=== PATIENT | female | born 1965 | race Caucasian/White ===

== ENCOUNTER → 2020-07-19 10:39 | Outpatient (CLI) | payer MEDICARE, MEDICAID, SELFPAY ==
--- NOTE | 2020-07-19 10:43 | MM_ITS ---
PROCEDURE: MM DIG SCREENING MAMM BI W/CAD Digital Breast Tomosynthesis Included CLINICAL INDICATION: SCREENING There is a history of breast cancer patient's paternal grandmother. COMPARISON: This is a baseline screening exam, patient without complaints TECHNIQUE: Standard CC and MLO images and 3D Tomosynthesis was obtained. R2 CAD reviewed. FINDINGS: Scattered fibroglandular densities are seen throughout both breasts on a background of primarily fatty breast parenchyma. The findings are fairly symmetrical bilaterally. There is no suspicious lesion and no suspicious microcalcifications. IMPRESSION: Fibrofatty parenchyma with no suspicious lesions seen BI-RAD Category: 1 Negative FOLLOW-UP: 1YR 1 Year Follow-up (A letter has been sent to the patient regarding results of the study.) Dictated by: Dr. Tom Poole MD 07/24/2020 08:26 Dr. Tom Poole MD in [place] 07/24/2020 08:26
== END ==
PROVIDERS: PCP Family Medicine Adult Medicine; Visit Provider Family Medicine Adult Medicine
DX: Z12.31 Encounter for screening mammogram for malignant neoplasm of breast (principal); Z80.3 Family history of malignant neoplasm of breast; I10 Essential (primary) hypertension; F33.1 Major depressive disorder, recurrent, moderate; F41.1 Generalized anxiety disorder; J30.2 Other seasonal allergic rhinitis
CPT/HCPCS: 77063; 77067

== ENCOUNTER 2020-09-03 15:37 | Emergency (ER) | payer MEDICARE, MEDICAID, SELFPAY ==
--- NOTE | 2020-09-03 16:03 | HMH.EDUTC ---
[facility] Disposition Clinical Impression: Exposure to COVID-19 virus Disposition: Home, Self-Care Condition on Discharge: Good Instructions: Preventing the Spread of Coronavirus Discharge Instructions Additional Instructions: Drink plenty of fluids. Take tylenol for pain or fever. Return if you begin to have difficulty breathing. Follow up with your regular doctor. GO TO THE ER FOR ANY WORSENING SYMPTOMS Referrals: Kayla Maynard APRN [Primary Care Provider] - Time of Disposition: 16:08 Medical Decision Making - Medical Records Medical records reviewed: No: I reviewed the patient's medical records. - Michael Inquiry Pt receiving controlled substance: No Vital Signs: 09/03/20 16:06 09/03/20 16:11 Temperature 98.1 F 98.1 F Temperature Source Tympanic Oral Pulse Rate 64 Pulse Rate [Right Brachial] 64 Respiratory Rate 14 14 Blood Pressure 165/80 H Blood Pressure [Right Arm] 165/80 H Blood Pressure Mean [Right Arm] 108 Blood Pressure Source Automatic Cuff Blood Pressure Source [Right Arm] Automatic Cuff Blood Pressure Position Sitting Blood Pressure Position [Right Arm] Sitting 02 Sat by Pulse Oximetry 97 Oxygen Delivery Method Room Air Room Air Orders (Tests/Meds): ORDERS Category Date Time Status Covid-19 Nasal PCR ([facility]) Routine Lab 09/03/20 15:50 Received [facility] HPI - General Stated complaint: covid test Time Seen by Provider: 09/03/20 16:03 - History of Present Illness Provider Complaint: Her son may have covid and she has been around him a lot over the past few days. She denies any symptoms at this time. - Related Data Home Medications Medication Instructions Recorded Confirmed Buprenorphine HCl/Naloxone HCl 2 film TD DAILY 04/17/19 04/17/19 [Buprenorp-Nalox 8-2 mg Sl Film] escitalopram oxalate 20 mg tablet 20 mg PO DAILY 06/20/20 fluticasone propionate 50 1 spray INTRANASAL DAILY 06/20/20 mcg/actuation nasal spray,suspension folic acid 1 mg tablet 1 mg PO DAILY 06/20/20 lisinopril 10 mg tablet 10 mg PO DAILY 06/20/20 metoprolol succinate 50 mg 50 mg PO DAILY 06/20/20 tablet,extended release 24 hr Allergies Allergy/AdvReac Type Severity Reaction Status Date / Time PCN (PENICILLIN) Allergy Unknown I-HIVES Uncoded 06/20/20 11:11 [facility] History - Hepatitis A Screen Attestation statement:: This patient has been screened for Hepatitis A risk factors. I have reviewed the patient's past medical history: Yes Medical History: Reports:: Cancer Denies:: Diabetes Mellitus Type 1, Diabetes Mellitus Type 2, MRSA Other Surgeries: Yes: Appendectomy Amputation: No Comment: rt foot - Social History Smoking Status: Current every day smoker Tobacco Type: cigarettes # Packs/Day (cigarettes): 1 Alcohol Intake: never Substance Use Type: marijuana, opiates, prescription drug Occupational Status: other Family Hx:: No significant family history ROS Obtained: Yes All systems reviewed & no additional complaints - Constitutional Constitutional: Reports system reviewed and no additional complaints, except as docu - Eyes Eyes: Reports system reviewed and no additional complaints, except as docu - ENT Ears, Nose, Mouth, and Throat: Reports system reviewed and no additional complaints, except as docu - Cardiovascular Cardiovascular: Reports system reviewed and no additional complaints, except as docu - Respiratory Respiratory: Reports system reviewed and no additional complaints, except as docu - Gastrointestinal Gastrointestingal: Reports: system reviewed and no additional complaints, except as docu Physical Exam - General General appearance: alert, in no apparent distress - Head Head exam: atraumatic, normocephalic, normal inspection - Eye Eye exam: Present: normal appearance, PERRL, EOMI - ENT ENT exam: Present: normal exam, normal oropharynx, mucous membranes moist, TM's normal bilaterally, normal external ear exam - N
[2020-09-03 16:06] VITALS: BP 165/80; PULSE 64; RESP 14; TEMP 36.7; O2SAT 97; BMI 32.8
[2020-09-03 16:11] VITALS: BP 165/80; PULSE 64; RESP 14; TEMP 36.7; O2SAT 97
== END 2020-09-03 16:12 | disposition home or self-care (01) ==
PROVIDERS: Emergency Provider Nurse Practitioner Family; PCP Nurse Practitioner Family
DX: Z20.822 Contact with and (suspected) exposure to COVID-19 (principal); F17.210 Nicotine dependence, cigarettes, uncomplicated; Z88.0 Allergy status to penicillin
CPT/HCPCS: 99202; G0463; U0003

== ENCOUNTER 2021-04-21 11:46 | Emergency (ER) | payer MEDICARE, MEDICAID, SELFPAY ==
[2021-04-21 12:50] VITALS: BP 160/72; PULSE 63; RESP 19; TEMP 36.8; O2SAT 96; BMI 31.3
--- NOTE | 2021-04-21 13:01 | XR_ITS ---
PROCEDURE: XR HAND LT MIN 3V CLINICAL INDICATION: FALL Pain COMPARISON: CR XR HAND RT MIN 3V from 04/21/2021 FINDINGS: No fracture or dislocation. No lytic or blastic change. There is normal mineralization. The joint spaces are well-preserved. No significant degenerative/arthritic changes. No erosive changes evident. Other findings:None. IMPRESSION: No acute findings. Dictated by: Jd Santos MD 04/21/2021 13:41 Jd Santos MD in [place] 04/21/2021 13:41
--- NOTE | 2021-04-21 13:01 | XR_ITS ---
PROCEDURE: XR HAND RT MIN 3V CLINICAL INDICATION: FALL COMPARISON: No exams were available for comparison FINDINGS: No fracture or dislocation. No lytic or blastic change. There is normal mineralization. The joint spaces are well-preserved. No significant degenerative/arthritic changes. No erosive changes evident. Other findings:None. IMPRESSION: No acute findings. Dictated by: Jd Santos MD 04/21/2021 13:47 Jd Santos MD in [place] 04/21/2021 13:47
--- NOTE | 2021-04-21 13:18 | HMH.EDUTC ---
[facility] [place] Clinical Impression: Hand pain Qualifiers: Laterality: bilateral Qualified Code(s): M79.641 - Pain in right hand; M79.642 - Pain in left hand Disposition: Home, Self-Care Condition on Discharge: Good Instructions: How to Apply an Kurt Wrap, How To Perform RICE (Rest, Ice, Compress, Elevate) Additional Instructions: *RICE, Rest the extremity, Ice 15-20 minutes 3-4 times daily, Compress- wear the kurt wrap as discussed as much as possible to help reduce swelling and pain, Elevate the extremity when at rest *Kurt wrap is for support and help control swelling, use it except in the shower. Be sure that is not to tight but not to loose either *Elevate when resting *Ibuprofen every 6-8 hours as needed for pain an inflammation. If need something more can take Tylenol in between doses of Ibuprofen to help Immediately follow up with your family doctor for new or worsening of symptoms, or no noticeable improvement over the next 3-5 days Follow up with your Family Doctor if no improvement or any worsening of symptoms Referrals: Provider,Referral, [Primary Care Provider] - As needed Time of Disposition: 13:51 Medical Decision Making - Michael Inquiry Pt receiving controlled substance: No Michael was queried for this patient: No Vital Signs: 04/21/21 12:50 Temperature 98.2 F Temperature Source Oral Pulse Rate [Right Brachial] 63 Respiratory Rate 19 Blood Pressure [Right Arm] 160/72 H Blood Pressure Mean [Right Arm] 101 Blood Pressure Source [Right Arm] Automatic Cuff Blood Pressure Position [Right Arm] Sitting 02 Sat by Pulse Oximetry 96 Oxygen Delivery Method Room Air Orders (Tests/Meds): ORDERS Category Date Time Status XR hand LT min 3V Stat Exams 04/21/21 13:01 Taken XR hand RT min 3V Stat Exams 04/21/21 13:01 Taken - Radiology Data #1 Image(s): Hand (left) Image Reviewed: Yes I have reviewed radiologist's interpretation Preliminary Findings: No Fracture Seen #2 Image(s): Hand (right) Image Reviewed: Yes I reviewed the patient's radiology image Preliminary Findings: No Fracture Seen [facility] HPI - General Stated complaint: AO [id number] both hands hurt,fell @ home Time Seen by Provider: 04/21/21 13:18 Mode of Arrival: Ambulatory Source of Information: Patient Limitations: No Limitations Description of Symptoms (Recalled from Triage Doc. by RN): PATIENT REPORTS SHE FELL ASLEEP ON THE PORCH LAST NIGHT AND FELL, INJURING HER HANDS HEENT Symptoms (Recalled from RN notes): No Resp Symptoms (Recalled from RN notes): No Skin Symptoms (Recalled from RN notes): No MS Symptoms (Recalled from RN notes): Yes Functional Status (Recalled from RN notes): WNL - History of Present Illness Provider Complaint: Patient states that she has been moving into a new appartment and she sit on the porch last night and dosed off when she fell over and she tried to catch herself and she stuck her hands out States that ever since she has been having pain in the back of both of her hands and hurts hwen she moves them so she came in to get checked - Related Data Home Medications Medication Instructions Recorded Confirmed Buprenorphine HCl/Naloxone HCl 0.5 film TD DAILY 04/17/19 04/21/21 [Buprenorp-Nalox 8-2 mg Sl Film] escitalopram oxalate 20 mg tablet 20 mg PO DAILY 06/20/20 04/21/21 lisinopril 10 mg tablet 10 mg PO DAILY 06/20/20 04/21/21 Allergies Allergy/AdvReac Type Severity Reaction Status Date / Time Penicillins Allergy Verified 04/21/21 13:06 - Worker's Comp Is this a Worker's Comp case?: No [facility] History - Hepatitis A Screen Drug use history?: No High risk sexual behaviors?: No History of sexually transmitted infection?: No Currently employed?: No Childcare worker?: No Do you have indoor plumbing?: Yes Do you have electricity?: Yes Attestation statement:: This patient has been screened for Hepatitis A risk factors. I have reviewed the patient's past medical histor
[2021-04-21 13:58] VITALS: BP 160/72; PULSE 63; RESP 19; TEMP 36.8; O2SAT 96
== END 2021-04-21 14:01 | disposition home or self-care (01) ==
PROVIDERS: Emergency Provider Nurse Practitioner
DX: M79.641 Pain in right hand (principal); M79.642 Pain in left hand; F17.210 Nicotine dependence, cigarettes, uncomplicated; W18.39XA Other fall on same level, initial encounter; Y92.038 Other place in apartment as the place of occurrence of the external cause
CPT/HCPCS: G0463; 73130; 99202

== ENCOUNTER → 2021-08-05 12:44 | Outpatient (CLI) | payer MEDICARE, MEDICAID, SELFPAY ==
--- NOTE | 2021-08-05 12:47 | MM_ITS ---
PROCEDURE INFORMATION: Exam: MG Bilateral Screening 3D Mammography Exam date and time: 08/05/2021 12:57 PM Age: 56 years old Clinical indication: Encounter for screening mammogram for malignant neoplasm of breast . Family history of breast carcinoma. TECHNIQUE: Imaging protocol: Bilateral Screening tomosynthesis and 2D mammography including computer-aided detection (CAD) when performed. COMPARISON: MG MM DIG SCREENING MAMM BI W/CAD 07/19/2020 11:03 AM FINDINGS: MAMMOGRAPHY: Breast composition: There are scattered areas of fibroglandular density. Mass: No suspicious masses. Architectural distortion: No suspicious distortion. Calcifications: No suspicious calcifications. Asymmetric density: None. Skin thickening: None. Axillary adenopathy: None. IMPRESSION: No mammographic evidence of malignancy. Annual screening is recommended unless otherwise clinically indicated. ASSESSMENT: BI-RADS Category 1: Negative
== END ==
PROVIDERS: PCP Nurse Practitioner Family; Visit Provider Nurse Practitioner Family
DX: Z12.31 Encounter for screening mammogram for malignant neoplasm of breast (principal)
CPT/HCPCS: 77063; 77067

== ENCOUNTER → 2022-08-14 13:38 | Outpatient (CLI) | payer MEDICARE, MEDICAID, SELFPAY ==
--- NOTE | 2022-08-14 13:45 | MM_ITS ---
PROCEDURE INFORMATION: Exam: MG Bilateral Screening 3D Mammography Exam date and time: 08/14/2022 1:43 PM Age: 57 years old Clinical indication: Screening examination. Her paternal grandmother had breast cancer. TECHNIQUE: Imaging protocol: Bilateral Screening tomosynthesis and 2D mammography including computer-aided detection (CAD) when performed. COMPARISON: 1. MG MM DIG SCREENING MAMM BI W/CAD 08/05/2021 12:57 PM 2. MG MM DIG SCREENING MAMM BI W/CAD 07/19/2020 11:03 AM FINDINGS: MAMMOGRAPHY: Breast composition: There are scattered areas of fibroglandular density. Mass: None. Architectural distortion: None. Calcifications: No suspicious calcifications. Asymmetric density: None. Skin thickening: None. Axillary adenopathy: None. IMPRESSION: No mammographic evidence of malignancy. Annual screening is recommended unless otherwise clinically indicated. ASSESSMENT: BI-RADS Category 1: Negative
== END ==
PROVIDERS: PCP Nurse Practitioner Family; Visit Provider Nurse Practitioner Family
DX: Z12.31 Encounter for screening mammogram for malignant neoplasm of breast (principal)
CPT/HCPCS: 77063; 77067

== ENCOUNTER 2022-12-04 13:35 | Emergency (ER) | payer MEDICARE, MEDICAID, SELFPAY ==
[2022-12-04 13:50] VITALS: BP 146/84; PULSE 76; RESP 19; TEMP 36.9; O2SAT 99; BMI 35.6
--- NOTE | 2022-12-04 13:51 | XR_ITS ---
FINAL REPORT CLINICAL HISTORY: stubbed frt fifth toe,pain and blood blister medial 5th toe FINDINGS: AP, oblique and lateral views of the right foot were obtained. There is no prior exam for comparison. There are postoperative changes to the proximal phalanx of the great toe. There is a fracture of the base of the middle phalanx of the fifth toe which extends to the PIP joint. No other acute fracture. There is multijoint degenerative disease. There is soft tissue edema of the fifth digit. IMPRESSION: Fracture of the middle phalanx of the fifth toe. Degenerative and postoperative changes. Reviewed, Interpreted and Dictated by Hannah Munroe MD Transcribed by Idris Apodaca Authenticated and [facility]
--- NOTE | 2022-12-04 13:51 | XR_ITS ---
FINAL REPORT CLINICAL HISTORY: JAMMED MIDDLE FINGER, pain and bruising at the base of the third finger FINDINGS: AP, lateral and oblique views of the right hand were obtained. A comparison from 04/21/2021 was used for comparison. There is no acute fracture or dislocation. The joint spaces are preserved. The soft tissues are normal. IMPRESSION: No acute osseous abnormality of the right hand. Reviewed, Interpreted and Dictated by Hannah Munroe MD Transcribed by Idris Apodaca Authenticated and [facility]
--- NOTE | 2022-12-04 14:07 | EXP.UTC ---
Discharge Plan Disposition Patient Disposition: Home, Self-Care Condition: Good Prescriptions Prescriptions: No Action escitalopram oxalate [Lexapro] 20 mg tablet 20 mg PO DAILY lisinopril 10 mg tablet 10 mg PO DAILY buprenorphine-naloxone 1 EACH film 0.5 film TD DAILY Referrals Follow up/Referrals: Moira Platt APRN [Primary Care Provider] - See instructions Juan Hamlin DO [Staff Physician] - See instructions (Call office for appointment) Activity Restrictions/Add. Instructions Additional Instructions/Restrictions: *weight bearing as tolerated *RICE, Rest the extremity, Ice 15-20 minutes 3-4 times daily, Compress- wear the kurt wrap as discussed as much as possible to help reduce swelling and pain, Elevate the extremity when at rest *Kurt wrap/Post OP shoe is for support and help control swelling, use it except in the shower. Be sure that is not to tight but not to loose either *Elevate when resting? *Ibuprofen 600-800mg every 6-8 hours as needed for pain an inflammation. If need something more can take Tylenol in between doses of Ibuprofen to help Immediately follow up with your family doctor for new or worsening of symptoms, or no noticeable improvement over the next 3-5 days Call Orthopedic office for appoitment Clinical Impressions Clinical Impression: Fracture of toe Qualifiers: Encounter type: initial encounter Toe: lesser toe Fracture type: closed Phalanx: middle Fracture alignment: nondisplaced Laterality: right Qualified Code(s): S92.524A - Nondisplaced fracture of middle phalanx of right lesser toe(s), initial encounter for closed fracture Instructions Patient Instructions: DI for Toe Fracture, Toe Fracture Discharge ED Provider: Ailyn Baker [facility] [place] General Stated complaint: AO@home 12/02 RT pinky toe pain, RT hand pain Mode of Arrival: Ambulatory Source of Information: Patient Limitations: No Limitations Time Seen by Provider: 12/04/22 14:00 Description of Symptoms (Recalled from Triage Doc. by RN): PATIENT STATES SHE KICKED A DOOR FRAME 2 DAYS AGO AND INJURED HER RIGHT PINKY TOE. ALSO C/O PAIN TO RIGHT MIDDLE FINGER HEENT Symptoms (Recalled from RN notes): No Resp Symptoms (Recalled from RN notes): No Skin Symptoms (Recalled from RN notes): No MS Symptoms (Recalled from RN notes): Yes Functional Status (Recalled from RN notes): WNL History of Present Illness Provider Complaint: Patient states that about 2 days ago she was walking through her house when she accidently kicked the door frame with her right foot and hurt her right little toe States that since then she has been having swelling and bruising and this morning she noticed she had a blood blister on the inside of her toe so she came in to get it looked at States that also she has been having pain in her right middle finger/top of hand after she hurt it a little while back wanting to get it checked also Related Data Home Medications Medication Instructions Recorded Confirmed buprenorphine 8 mg-naloxone 2 mg 0.5 film TD DAILY . 04/17/19 04/21/21 sublingual film escitalopram oxalate 20 mg tablet 20 mg PO DAILY Depression 06/20/20 04/21/21 (Lexapro) lisinopril 10 mg tablet 10 mg PO DAILY Hypertension 06/20/20 04/21/21 Allergies Allergy/AdvReac Type Severity Reaction Status Date / Time Penicillins Allergy Verified 04/21/21 13:06 Worker's Comp Is this a Worker's Comp case?: No [facility] Disclaimer: The information contained in this section may have been updated after the patient was seen, as this information can be updated by other users. Social History Smoking Status: Current every day smoker tobacco type: cigarettes packs per day: 1 alcohol intake: never substance use type: marijuana, opiates and prescription drug current occupational status: other Travel in the last 8 weeks: None ROS Obtained: Yes All systems reviewed & no additional complaints except as documente
[2022-12-04 16:17] VITALS: BP 146/84; PULSE 76; RESP 19; TEMP 36.9; O2SAT 99
== END 2022-12-04 16:19 | disposition home or self-care (01) ==
PROVIDERS: Emergency Provider Nurse Practitioner; PCP Nurse Practitioner Family
DX: S92.521A Displaced fracture of middle phalanx of right lesser toe(s), initial encounter for closed fracture (principal); M79.641 Pain in right hand; W22.8XXA Striking against or struck by other objects, initial encounter
CPT/HCPCS: 73130; 73630; 99212; 99213; 99214; G0463

== ENCOUNTER 2022-12-11 17:07 | Emergency (ER) | payer MEDICARE, MEDICAID, SELFPAY ==
[2022-12-11 17:09] VITALS: BP 150/84; PULSE 60; RESP 18; TEMP 36.6; O2SAT 94; BMI 29.7
--- NOTE | 2022-12-11 17:29 | EXP.UTC ---
Discharge Plan Disposition Patient Disposition: Home, Self-Care Condition: Good Prescriptions Prescriptions: No Action escitalopram oxalate [Lexapro] 20 mg tablet 20 mg PO DAILY lisinopril 10 mg tablet 10 mg PO DAILY buprenorphine-naloxone 1 EACH film 0.5 film TD DAILY Referrals Follow up/Referrals: Moira Platt APRN [Primary Care Provider] - See instructions Activity Restrictions/Add. Instructions Additional Instructions/Restrictions: Follow up with Ms Platt if not improving Warm epsom salt soaks Clinical Impressions Clinical Impression: Seroma, Fracture of toe Instructions Patient Instructions: DI for Hematoma (Bruise) [place]charge ED Provider[place] Pooja [place] [facility] [place] General Stated complaint: RT pinky toe inj, blister on toe Mode of Arrival: Ambulatory Source of Information: Patient Limitations: No Limitations Time Seen by Provider: 12/11/22 17:33 Description of Symptoms (Recalled from Triage Doc. by RN): Patient states she was here this past weekend and told she broke her toe in two pieces. Now she states she has a blister on that toe. HEENT Symptoms (Recalled from RN notes): No Resp Symptoms (Recalled from RN notes): No Skin Symptoms (Recalled from RN notes): Yes MS Symptoms (Recalled from RN notes): No Functional Status (Recalled from RN notes): wnl History of Present Illness Provider Complaint: Patient fractured her right 5th toe last weekend. She kicked a box fan and her 5th toe was bent to the side. Tried wearing post op shoe and it was uncomfortable. Now has a blister on the inner, upper toe. Onset (ago): week(s) Location: right and lower extremity Relieving factors: none Exacerbating factors: none Treatments prior to arrival: none Related Data Home Medications Medication Instructions Recorded Confirmed buprenorphine 8 mg-naloxone 2 mg 0.5 film TD DAILY . 04/17/19 04/21/21 sublingual film escitalopram oxalate 20 mg tablet 20 mg PO DAILY Depression 06/20/20 04/21/21 (Lexapro) lisinopril 10 mg tablet 10 mg PO DAILY Hypertension 06/20/20 04/21/21 Allergies Allergy/AdvReac Type Severity Reaction Status Date / Time Penicillins Allergy Verified 04/21/21 13:06 Worker's Comp Is this a Worker's Comp case?: No [facility] Disclaimer: The information contained in this section may have been updated after the patient was seen, as this information can be updated by other users. Social History Smoking Status: Current every day smoker tobacco type: cigarettes packs per day: 1 alcohol intake: never substance use type: marijuana, opiates and prescription drug current occupational status: other Travel in the last 8 weeks: None ROS Obtained: Yes All systems reviewed & no additional complaints except as documented and Yes Systems reviewed as appropriate & no additional complaints except as documented ENT Ears, Nose, Mouth, and Throat: Reports system reviewed and no additional complaints, except as documented and Reports as per HPI Cardiovascular Cardiovascular: Reports system reviewed and no additional complaints, except as documented and Reports as per HPI Respiratory Respiratory: Reports system reviewed and no additional complaints, except as documented and Reports as per HPI Gastrointestinal Gastrointestingal: Reports system reviewed and no additional complaints, except as documented and as per HPI Genitourinary Female Genitourinary: Reports system reviewed and no additional complaints, except as documented and Reports as per HPI Musculoskeletal Musculoskeletal: Reports system reviewed and no additional complaints, except as documented and Reports as per HPI Comments: right 5th toe pain Integumentary/Breasts Skin/Breast: Reports system reviewed and no additional complaints, except as documented and Reports as per HPI Physical Exam General General appearance: alert and in no apparent distress Respiratory Respiratory exam: Present crescencio
[2022-12-11 18:40] VITALS: BP 150/84; PULSE 60; RESP 18; TEMP 36.6; O2SAT 94
== END 2022-12-11 18:41 | disposition home or self-care (01) ==
PROVIDERS: Emergency Provider Physician Assistant; PCP Nurse Practitioner Family
DX: S92.911A Unspecified fracture of right toe(s), initial encounter for closed fracture (principal); F17.210 Nicotine dependence, cigarettes, uncomplicated; W22.8XXA Striking against or struck by other objects, initial encounter
CPT/HCPCS: 99212; 99213; G0463

== ENCOUNTER → 2023-03-08 16:09 | Outpatient (CLI) | payer MEDICARE, MEDICAID, SELFPAY ==
--- NOTE | 2023-03-08 16:15 | XR_ITS ---
FINAL REPORT CLINICAL HISTORY: SWELLING POSTERIOR LEFT ELBOW FINDINGS: 3 views of the elbow were obtained. There is no acute fracture or dislocation. The joint spaces are intact. There are mild degenerative changes. Soft tissue swelling is seen overlying the olecranon which may represent olecranon bursitis. IMPRESSION: No acute fracture Reviewed, Interpreted and Dictated by Samir Mcfarland III, MD Transcribed by Molly Kumar Authenticated and [facility]
== END ==
PROVIDERS: PCP Nurse Practitioner Family; Visit Provider Nurse Practitioner Family
DX: M25.522 Pain in left elbow (principal)
CPT/HCPCS: 73080

== ENCOUNTER 2023-08-25 14:32 | Emergency (ER) | payer MEDICARE, MEDICAID, SELFPAY ==
[2023-08-25 15:00] VITALS: BP 119/74; PULSE 81; RESP 18; TEMP 37; O2SAT 96; BMI 29.5
--- NOTE | 2023-08-25 15:06 | ED_ITS ---
Discharge Plan Disposition Patient Disposition: Home, Self-Care Condition: Good Prescriptions Prescriptions: New cyclobenzaprine 10 mg Tablet 10 mg PO BID PRN (Reason: Muscle Spasm) Qty: 20 0RF methylprednisolone 4 mg Tablets,Dose Pack 4 mg PO DIRECTED 6 Days Qty: 21 0RF Rx Instructions: Take 1 pack as directed for 6 days No Action escitalopram oxalate [Lexapro] 20 mg tablet 20 mg PO DAILY lisinopril 10 mg tablet 10 mg PO DAILY albuterol sulfate 90 mcg/actuation HFA aerosol inhaler See Rx Instructions .ROUTE .COMPLEX Patient Comments: INHALE 1 TO 2 PUFFS BY MOUTH EVERY 4 HOURS NEEDED FOR WHEEZING OR COUGHING Rx Instructions: INHALE 1 TO 2 PUFFS BY MOUTH EVERY 4 HOURS NEEDED FOR WHEEZING OR COUGHING bupropion HCl 150 mg tablet extended release 24 hr 150 mg PO BID buprenorphine-naloxone 8-2 mg film See Rx Instructions .ROUTE .COMPLEX Patient Comments: DISSOLVE 1 AND 3/4 FILM UNDER THE TONGUE ONCE DAILY DIRECTED Rx Instructions: DISSOLVE 1 AND 3/4 FILM UNDER THE TONGUE ONCE DAILY DIRECTED Referrals Follow up/Referrals: Moira Platt APRN [Primary Care Provider] - See instructions Activity Restrictions/Add. Instructions Additional Instructions/Restrictions: Go home and rest. It would be best if you rested tomorrow too. No heavy lifting. No twisting. Take the oral medications as directed. The muscle relaxer (cyclobenzaprine--Flexeril) will make you drowsy, so don't drive or operate heavy machinery after taking it. Don't start the oral steroids (medrol dose pack) until tomorrow, since you had the shots in here today. Follow up with your regular doctor. GO TO THE ER FOR ANY WORSENING SYMPTOMS OR CONCERN, ESPECIALLY BOWEL OR BLADDER ISSUES, SADDLE AREA NUMBNESS, FEVER, ETC Clinical Impressions Clinical Impression: Acquired torticollis Instructions Patient Instructions: Cyclobenzaprine, Methylprednisolone, Ketorolac Injection, Dexamethasone Injection Discharge ED Provider: Lizandro Thakur [facility] General Stated complaint: neck pain on lt side of neck Time Seen by Provider: 08/25/23 15:06 History of Present Illness Provider Complaint: She states that she has had muscle tightness, muscles spasms and pain of the left side of her neck for the past 3 days. She denies any injury. She states that she woke up with the neck pain. She has took ibuprofen for the pain and it has help for a short time. She denies any chest pain. Related Data Home Medications Medication Instructions Recorded Confirmed escitalopram oxalate 20 mg tablet 20 mg PO DAILY Depression 06/20/20 08/25/23 (Lexapro) lisinopril 10 mg tablet 10 mg PO DAILY Hypertension 06/20/20 08/25/23 albuterol sulfate 90 mcg/actuation See Rx Instructions .Route .COMPLEX 08/25/23 08/25/23 aerosol inhaler buprenorphine 8 mg-naloxone 2 mg See Rx Instructions .Route .COMPLEX 08/25/23 08/25/23 sublingual film bupropion HCl 150 mg 24 hr tablet, 150 mg PO BID 08/25/23 08/25/23 extended release Previous Rx's Medication Instructions Recorded cyclobenzaprine 10 mg tablet 10 mg PO BID PRN Muscle Spasm #20 08/25/23 tabs methylprednisolone 4 mg tablets in 4 mg PO DIRECTED 6 days #21 tabs 08/25/23 a dose pack Allergies Allergy/AdvReac Type Severity Reaction Status Date / Time Penicillins Allergy Verified 08/25/23 15:22 [facility] Disclaimer: The information contained in this section may have been updated after the patient was seen, as this information can be updated by other users. Social History Smoking Status: Current every day smoker tobacco type: cigarettes packs per day: 1 alcohol intake: never substance use type: marijuana, opiates and prescription drug current occupational status: other Travel in the last 8 weeks: None ROS Obtained: Yes All systems reviewed & no additional complaints except as documented Constitutional Constitutional: Denies chills and Denies fever(s) Eyes Eyes: Denies eye discharge ENT Ears, Nose, Mouth, and Throat: Denies dizziness, Denies otalgia, Reports neck pain and Denies sore throat Cardiovascular Cardiovascular: Denies chest pain Respiratory Respiratory: Denies shortness of breath, Denies chest congestion, Denies cough, Denies stridor and Denies wheezing Gastrointestinal Gastrointestingal: Denies nausea or vomiting Musculoskeletal Musculoskeletal: Reports as per HPI, Denies back pain and Reports neck pain Integumentary/Breasts Skin/Breast: Denies rash Neurologic Neurologic: Denies dizziness, Denies paresthesias and Denies radicular pain Allergic/Immunologic Allergic/Immunologic: Denies wheezing Physical Exam General General appearance: alert and in no apparent distress Head Head exam: atraumatic, normocephalic and normal inspection Eye Eye exam: Present normal appearance, PERRL and EOMI ENT ENT exam: Present normal exam, normal oropharynx, mucous membranes moist, TM's normal bilaterally and normal external ear exam Neck Neck exam: Present normal inspection, full ROM and trachea midline; Absent meningismus or lymphadenopathy Chest Chest inspection: Present normal inspection and symmetric chest wall rise; Absent tenderness Respiratory Respiratory exam: Present normal lung sounds bilaterally; Absent respiratory distress Cardiovascular Cardiovascular exam: Present regular rate and normal rhythm; Absent JVD Abdominal Exam Abdominal exam: Present soft and normal bowel sounds; Absent distention, tenderness or guarding Extremities Exam Extremities exam: Present normal inspection, full ROM and normal capillary refill; Absent calf tenderness Back Exam Back exam: Present normal inspection; Absent tenderness Neurological Exam Neurological exam: Present alert, oriented X3, CN II-XII intact, normal gait and reflexes normal; Absent motor sensory deficit Expanded Neurological Exam Speech: Present fluid speech Cranial nerves: Normal: EOM function (II, III, IV, ), facial sensation (V), facial palsy (VII), gag reflex (IX), spinal accessory function (XI) and tongue deviation (XII) Cerebellar function: normal gait Motor strength - LUE: 5/5 Motor strength - RUE: 5/5 Motor strength - LLE: 5/5 Motor strength - RLE: 5/5 Upper motor neuron exam: Normal: pratik neglect and sensory extinction Sensory exam upper extremity: Normal: light touch and 2 point discrimination Sensory exam lower extremity: Normal: light touch and 2 point discrimination DTR: 2+: biceps (L), biceps (R), patellar (L), patellar (R), Achilles tendon (L) and Achilles tendon (R) Psychiatric Psychiatric exam: Present normal affect and normal mood Skin Skin exam: Present warm, dry, intact and normal color Lymphatic Lymphatic Findings: no adenopathy Medical Decision Making Medical Records Medical records reviewed: No I reviewed the patient's medical records. Michael Inquiry Pt receiving controlled substance: No
[2023-08-25] MEDS: DEXAMETHASONE 4MG/ML 1ML VIAL 8 MG IM (15:28)
[2023-08-25] MEDS: KETOROLAC 60MG/2ML VIAL 60 MG IM (15:28)
[2023-08-25 15:57] VITALS: BP 119/74; PULSE 81; RESP 18; TEMP 37; O2SAT 96
== END 2023-08-25 15:57 | disposition home or self-care (01) ==
PROVIDERS: Emergency Provider Nurse Practitioner Family; PCP Nurse Practitioner Family
DX: M43.6 Torticollis (principal); M54.2 Cervicalgia; M62.838 Other muscle spasm; F17.210 Nicotine dependence, cigarettes, uncomplicated
CPT/HCPCS: 96372; 99212; 99214; G0463

== ENCOUNTER 2023-10-24 14:32 | Emergency (ER) | payer MEDICARE, MEDICAID, SELFPAY ==
[2023-10-24 14:39] VITALS: BMI 29.9
--- NOTE | 2023-10-24 14:39 | XR_ITS ---
PROCEDURE INFORMATION: Exam: XR Left Ribs with PA Chest Exam date and time: 10/24/2023 2:42 PM Age: 58 years old Clinical indication: Injury or trauma; Fall; Rib area, left side; Blunt trauma TECHNIQUE: Imaging protocol: Radiologic exam of the left ribs with PA chest. Views: 3 views COMPARISON: No relevant prior studies available. FINDINGS: Lungs: Unremarkable. No consolidation. Pleural spaces: Unremarkable. No pleural effusion. No pneumothorax. Heart/Mediastinum: Unremarkable. No cardiomegaly. Bones/joints: Displaced left 5th rib fracture.. IMPRESSION: Displaced left 5th rib fracture..
[2023-10-24 15:50] VITALS: BP 151/86; RESP 18; TEMP 36.8; O2SAT 97; BMI 30.4
--- NOTE | 2023-10-24 16:12 | ED_ITS ---
Discharge Plan Disposition Patient Disposition: Home, Self-Care Condition: Good Prescriptions Prescriptions: No Action escitalopram oxalate [Lexapro] 20 mg tablet 20 mg PO DAILY lisinopril 10 mg tablet 10 mg PO DAILY albuterol sulfate 90 mcg/actuation HFA aerosol inhaler See Rx Instructions .ROUTE .COMPLEX Patient Comments: INHALE 1 TO 2 PUFFS BY MOUTH EVERY 4 HOURS NEEDED FOR WHEEZING OR COUGHING Rx Instructions: INHALE 1 TO 2 PUFFS BY MOUTH EVERY 4 HOURS NEEDED FOR WHEEZING OR COUGHING bupropion HCl 150 mg tablet extended release 24 hr 150 mg PO BID buprenorphine-naloxone 8-2 mg film See Rx Instructions .ROUTE .COMPLEX Patient Comments: DISSOLVE 1 AND 3/4 FILM UNDER THE TONGUE ONCE DAILY DIRECTED Rx Instructions: DISSOLVE 1 AND 3/4 FILM UNDER THE TONGUE ONCE DAILY DIRECTED cyclobenzaprine 10 mg Tablet 10 mg PO BID PRN (Reason: Muscle Spasm) Qty: 20 0RF Referrals Follow up/Referrals: Moira Platt APRN [Primary Care Provider] - See instructions Activity Restrictions/Add. Instructions Additional Instructions/Restrictions: tylenol or motrin as needed for pain follow up with ortho- call office tomorrow for appointment if symptoms worsen or new symptoms return Clinical Impressions Clinical Impression: Fracture of rib of left side Qualifiers: Encounter type: initial encounter Rib fracture type: single rib Fracture type: closed Qualified Code(s): S22.32XA - Fracture of one rib, left side, initial encounter for closed fracture Instructions Patient Instructions: Rib Fracture, DI for Rib Fracture [facility] [facility] [place] General Stated complaint: AO 10/21 fall, left side rib pain Mode of Arrival: Ambulatory Source of Information: Patient Limitations: No Limitations Time Seen by Provider: 10/24/23 16:13 Description of Symptoms (Recalled from Triage Doc. by RN): Pt was standing on toilet and sink and was trying to clean. She misstepped and fell and hit the corner of her sink. She stated that it hurts on the left side around her ribs. She denies hitting her head. HEENT Symptoms (Recalled from RN notes): No Resp Symptoms (Recalled from RN notes): No Skin Symptoms (Recalled from RN notes): No MS Symptoms (Recalled from RN notes): Yes Functional Status (Recalled from RN notes): n/a History of Present Illness Provider Complaint: 58 yr old female presents for left rib pain. Pt states she was standing on toilet and sink and was trying to clean. She misstepped and fell and hit the corner of her sink. She stated that it hurts on the left side around her ribs. She denies hitting her head. Related Data Home Medications Medication Instructions Recorded Confirmed escitalopram oxalate 20 mg tablet 20 mg PO DAILY Depression 06/20/20 10/24/23 (Lexapro) lisinopril 10 mg tablet 10 mg PO DAILY Hypertension 06/20/20 10/24/23 albuterol sulfate 90 mcg/actuation See Rx Instructions .Route .COMPLEX 08/25/23 10/24/23 aerosol inhaler buprenorphine 8 mg-naloxone 2 mg See Rx Instructions .Route .COMPLEX 08/25/23 10/24/23 sublingual film bupropion HCl 150 mg 24 hr tablet, 150 mg PO BID 08/25/23 10/24/23 extended release Previous Rx's Medication Instructions Recorded cyclobenzaprine 10 mg tablet 10 mg PO BID PRN Muscle Spasm #20 08/25/23 tabs Allergies Allergy/AdvReac Type Severity Reaction Status Date / Time Penicillins Allergy Verified 10/24/23 16:01 Worker's Comp Is this a Worker's Comp case?: No [facility] Disclaimer: The information contained in this section may have been updated after the patient was seen, as this information can be updated by other users. Social History , [employer]) Smoking Status: Current every day smoker tobacco type: cigarettes packs per day: 1 alcohol intake: never substance use type: marijuana, opiates and prescription drug current occupational status: other Travel in the last 8 weeks: None ROS Obtained: Yes All systems reviewed & no additional complaints except as documented Constitutional Constitutional: Reports system reviewed and no additional complaints, except as documented ENT Ears, Nose, Mouth, and Throat: Reports system reviewed and no additional complaints, except as documented Cardiovascular Cardiovascular: Reports system reviewed and no additional complaints, except as documented Respiratory Respiratory: Reports system reviewed and no additional complaints, except as documented Gastrointestinal Gastrointestingal: Reports system reviewed and no additional complaints, except as documented Musculoskeletal Musculoskeletal: Reports system reviewed and no additional complaints, except as documented, Reports as per HPI, Reports limited range of motion and Reports other (rib pain) Integumentary/Breasts Skin/Breast: Reports system reviewed and no additional complaints, except as documented Neurologic Neurologic: Reports system reviewed and no additional complaints, except as documented Endocrine Endocrine: Reports system reviewed and no additional complaints, except as documented Hematologic/Lymphatic Henatologic/Lymphatic: Reports system reviewed and no additional complaints, except as documented Physical Exam General General appearance: alert and in no apparent distress Head Head exam: atraumatic Eye Eye exam: Present normal appearance and PERRL Respiratory Respiratory exam: Present normal lung sounds bilaterally; Absent respiratory distress Cardiovascular Cardiovascular exam: Present regular rate and normal rhythm Neurological Exam Neurological exam: Present alert and oriented X3 Skin Skin exam: Present warm and intact Medical Decision Making Medical Records Medical records reviewed: Yes I reviewed the patient's medical records. Michael Inquiry Pt receiving controlled substance: No Michael was queried for this patient: No Vital Signs: 10/24/23 15:50 Temperature 98.2 F Temperature Source Oral Respiratory Rate 18 Blood Pressure [Right Arm] 151/86 H Blood Pressure Mean [Right Arm] 107 Blood Pressure Source [Right Arm] Automatic Cuff Blood Pressure Position [Right Arm] Sitting 02 Sat by Pulse Oximetry 97 Oxygen Delivery Method Room Air Lab Data Lab results reviewed: Yes I reviewed the patient's lab results. Orders (Tests/Meds): ORDERS Category Date Time Status XR ribs LT min 3V w CXR1V Stat Exams 10/24/23 14:39 Completed Physician Consults Physician Consulted: Dr Davis- Time: 16:33 Reason -: Orthopedic Eval/Care Comment/Response: pt has displaced rib fracture- needs is, pain control follow up with ortho
[2023-10-24 16:34] VITALS: BP 151/86; PULSE 87; RESP 18; TEMP 36.8; O2SAT 97
== END 2023-10-24 16:50 | disposition home or self-care (01) ==
PROVIDERS: Emergency Provider Nurse Practitioner Family; PCP Nurse Practitioner Family
DX: S22.32XA Fracture of one rib, left side, initial encounter for closed fracture (principal); R07.81 Pleurodynia; F17.210 Nicotine dependence, cigarettes, uncomplicated; W17.89XA Other fall from one level to another, initial encounter
CPT/HCPCS: 71101; 99212; 99213; G0463

== ENCOUNTER 2025-01-18 13:28 | Outpatient (CLI) | payer MEDICARE, MEDICAID, SELFPAY ==
--- OUTSIDE RECORDS SUMMARY | 2025-01-04 05:30 | XMS_ITS | Continuity of Care Document ---
Author Organization [facility] Address [address] [place] [address] Phone Care Team Providers Care Family Service Assistant Name Role Phone Lc MSN, PLASTER APPLICATOR, Moira Unavailable Unavai lable Allergies, Adverse Reactions, Alerts Substance Reaction Status Criticality potassium Active No Information Penicillins Active No Information WARNIN allergy(ies) could not be collected because the type is not supported. Please contact the source practice for further details. Medications Medication Instructions Dosage Effective Dates (start - stop) Status Comments Lexapro 20 mg tablet TAKE 1 TABLET BY MOUTH DAILY FOR DEPRESSION OR ANXIETY - Active cetirizine 10 mg tablet Take one tablet daily. - Active Flonase Allergy Relief 50 mcg/actuation nasal spray,suspension One Skykom[place] in each nostril daily. - Active bupropion HCl XL 150 mg 24 hr tablet, extended release TAKE 1 TABLET BY MOUTH TWICE DAILY - Active lisinopril 40 mg tablet TAKE 1 TABLET BY MOUTH DAILY - Active Ventolin HFA 90 mcg/actuation aerosol inhaler Use 1-2 puffs every 4 hrs as needed for wheezing or coughing. - Active Alaway 0.025 % (0.035 %) eye drops instill 1 drop by ophthalmic route 2 times every day into affected eye(s) 1.00 drop - Active Bactrim DS 800 mg-160 mg tablet take 1 tablet by oral route every 12 hours 1.00 tablet - Active hydrochlorothiazide 12.5 mg tablet take 1 tablet by oral route every day 12.5 MG Josue-11-2025 - Active mupirocin 2 % topical ointment apply by topical route 2 times every day a small amount to the affected area Not Available - Active Suboxone 8 mg-2 mg sublingual film Take 1.5 daily. - Active Advance Directives Directive Yes / No Effective Date File Name No Information Encounters Encounter Description Practice Location Reason(s) For Visit Diagnoses Date Provider [facility], [address] [place] [address], [facility], tel:[phone] [facility] [place] No Information 5 Platt Moira. [address], [place], [id number], . tel:[phone] [place] [address], [address] [place] [address], [facility], tel:[phone] [facility] [place] Rash (chief complaint)L abs (chief complaint)B 12 injection (chief complaint)m ammogram and pap (chief complaint)M edication Refills (chief complaint)l egs continued (chief complaint) Essential (primary) hypertensionVitamin B12 deficiencyPrediabetes Vitamin D deficiency, unspecifiedNicotine dependence, cigarettes, uncomplicatedAbnormal results of liver function studiesCellulitisClau dicationBody mass index [BMI] 29.0-29.9, adultEdema 5 Platt Moira. [address], [place], [id number], [place]. tel:[phone] [place] [address], [address] [place] [address], [facility], tel:[phone] [facility] [place] b12 injection (chief complaint) Essential (primary) hypertensionVitamin B12 deficiency 5 Platt Moira. [address], [place], [id number], . tel:[phone] [place] [address], [address] [place] [address], [facility], tel:[phone] [facility] [place] f/u labs (chief complaint)t elehealth (chief complaint) Vitamin D deficiency, unspecifiedPrediabete sAbnormal results of liver function studies 5 Platt Moira. [address] [place], [place], [id number], . tel:[phone] [place] [address], [address] [place] [address], [facility], tel:[phone] [facility] [place] Fasting Labs (chief complaint)B 12 injection (chief complaint) Essential (primary) hypertensionVitamin B12 deficiency 5 Platt Moira. [address] [place], [place], [id number], . tel:[phone] [place] [address], [address] [place] [address], [facility], tel:[phone] [facility] [place] Flu Vaccine (chief complaint)b 12 injection (chief complaint) Vitamin B12 deficiencyEncounter for immunization 4 Platt Moira. [address] [place] [address], [id number], . tel:[phone] [place] [address], [address] [place] [address], [facility], tel:[phone] [facility] monthly b12 (chief complaint) Vitamin B12 deficiency 4 Platt Moira. [address], [place], [id number], . tel:[phone] [place] [address], [address] [place] [address], [facility], tel:[phone] [facility] [place] B12 INJECTION (chief complaint)F ractured Rib (chief complaint)d epression screening (chief complaint)P RAPARE (chief complaint) Extreme povertyUnderachieveme nt in schoolVitamin B12 deficiencyBody mass index [BMI] 31.0-31.9, adultFracture of one rib, left side, sequelaFracture of one rib, left side, subsequent encounter for fracture with routine healing 4 Platt Moira. [address] [place], [id number], [place]. tel:[phone] [place] [address], [address] [place] [address], [facility], [place] tel:[phone] [facility] [place] B12 INJECTION (chief complaint) Vitamin B12 deficiency 4 Platt Moira. [address], [place], [id number], [place]. tel:[phone] [place] [address], [address] [place] [address], [facility], tel:[phone] [facility] [place] SORE THROAT AND COUGH (chief complaint) COVID-19Streptococcal sore throatFeverCandidiasi s, unspecifiedVitamin B12 deficiency 4 Platt Moira. [address], [place], [id number], [place]. tel:[phone] [place] [address], [address] [place] [address], [facility], [place] tel:[phone] [facility] [place] B12 INJECTION (chief complaint) Vitamin B12 deficiency 4 Platt Moira. [address], [place], [id number], [place]. tel:[phone] [place] [address], [address] [place] [address], [address], [place] tel:[phone] [facility] [place] left elbow pain. (chief complaint) Other bursitis of elbow, left elbowVitamin B12 deficiency 3 Platt Moira. [address], [place], [address], [place]. tel:[phone] [place] [address], [address] [place] [address], [facility], tel:[phone] [facility] [place] Monthly b12 and elbow pain (chief complaint) Vitamin B12 deficiencyOther bursitis of elbow, left elbowBody mass index [BMI] 33.0-33.9, adult Feb- 3 Platt Moira. [address], [place], [id number], [place]. tel:[phone] [place] [address], [address] [place] [address], [facility], tel:[phone] [facility] [place] INJECTION (chief complaint) Vitamin B12 deficiency 3 Platt Moira. [address], [place], [address], [place]. tel:[phone] [place] [address], [address] [place] [address], [facility], tel:[phone] [facility] [place] FOLLOW UP FROM ER VISIT FOR BROKEN TOE (chief complaint) Vitamin B12 deficiencyBody mass index [BMI] 33.0-33.9, adultFracture of right toe, subsequent encounter for fracture w/ routine healing 3 Platt Moira. [address], [place], [id number], [place]. tel:[phone] [place] [address], [address] [place] [address], [facility], tel:[phone] [facility] [place] Monthly B12 injection. (chief complaint)W ound check. (chief complaint) Essential (primary) hypertensionNicotine dependence, cigarettes, uncomplicatedVitamin B12 deficiencyCellulitisB annika mass index [BMI] 32.0-32.9, adult 3 Platt Moira. [address] [place], [place], [address], [place]. tel:[phone] [place] [address], [address] [place] [address], [facility], tel:[phone] [facility] [place] Follow up on Wound (chief complaint) Contusion of right hand, initial encounter 3 Platt Moira. [address], [place], [id number], [place]. tel:[phone] [place] [address], [address] [place] [address], [facility], tel:[phone] [facility] [place] wound (chief complaint) Body mass index [BMI] 32.0-32.9, adultCellulitisNicoti ne dependence, cigarettes, uncomplicated 3 Platt Moira. [address], [place], [id number], [place]. tel:[phone] [place] [address], [address] [place] [address], [facility], tel:[phone] [facility] [place] wound (chief complaint) Vitamin B12 deficiencyBody mass index [BMI] 32.0-32.9, adultCellulitis Oct- 3 Platt Moira. [address], [place], [id number], [place]. tel:[phone] [place] [address], [address] [place] [address], [facility], tel:[phone] [facility] [place] B12 INJECTION (chief complaint) Vitamin B12 deficiency 3 Platt Moira. [address], [place], [address], [place]. tel:[phone] [place] [address], [address] [place] [address], [facility], tel:[phone] [facility] [place] Encounter for screening for depressionEncounter for screening examination for other mental health and behavioral disorders 3 Platt Moira. [address], [place], [id number], [place]. tel:[phone] [facility], [address] [place] [address], [facility], tel:[phone] [facility] [place] B12 injection (chief complaint) Vitamin B12 deficiency Aug- 3 Platt Moira. [address], [place], [id number], [place]. tel:[phone] [place] [address], [address] [place] [address], [facility], tel:[phone] [facility] [place] Injection (chief complaint) Vitamin B12 deficiency Mar-0 3 Platt Moira. [address], [place], [id number], [place]. tel:[phone] [place] [address], [address] [place] [address], [facility], tel:[phone] [facility] [place] dental/jaw pain (chief complaint) Body mass index [BMI] 32.0-32.9, adultDorsalgia, unspecifiedApical periodontitis NOSVitamin B12 deficiency Feb-2 3 Platt Moira. [address], [place], [id number], [place]. tel:[phone] [place] [address], [address] [place] [address], [facility], [place] tel:[phone] [facility] [place] B12 INJECTION (chief complaint) Vitamin B12 deficiency Feb- 3 Platt Moira. [address], [place], [id number], [place]. tel:[phone] [place] [address], [address] [place] [address], [facility], tel:[phone] [facility] [place] B12 INJECTION (chief complaint) Vitamin B12 deficiency Fe-0 3 Platt Moira. [address], [place], [address], . tel:[phone] [place] [address], [address] [place] [address], [facility], tel:[phone] [facility] B12 INJECTION (chief complaint) Vitamin B12 deficiency 3 Platt Moira. [address], [place], [address], [place]. tel:[phone] [place] [address], [address] [place] [address], [facility], tel:[phone] [facility] [place] Follow up on medication (chief complaint) Encounter for screening for diseases of the blood and blood-forming organs and certain disorders involving the immune mechanismVitamin B12 deficiencyMajor depressive disorder, recurrent, moderateNicotine dependence, cigarettes, uncomplicatedEssentia l (primary) hypertensionEncntr screen mammogram for malignant neoplasm of breastBody mass index [BMI] 32.0-32.9, adult 3 Platt Moira. [address], [place], [address], . tel:[phone] [place] [address], [facility], tel:[phone] [facility] [place] Routine Followup (chief complaint)F asting Labs (chief complaint) Essential (primary) hypertensionFolate deficiency anemia, unspecifiedGeneralize d Anxiety DisorderMajor depressive disorder, recurrent, moderateNicotine dependence, cigarettes, uncomplicatedVitamin D deficiency, unspecifiedEncounter for immunizationTobacco useBody mass index [BMI] 31.0-31.9, adultEncounter for screening for diabetes mellitus 2 Platt Moira. [address], [place], [id number], . tel:[phone] [place] [address], [address] [place] [address], [address], [place] tel:[phone] [facility] No Information 2 Platt Moira. [address], [place], [id number], [place]. tel:[phone] [place] [address], [address] [place] [address], [facility], tel:[phone] [facility] [place] Encounter for screening for other viral diseasesEncntr screen for malignant neoplasm of respiratory organsDorsalgia, unspecifiedEncounter for issue of repeat prescriptionDysuriaVi tamin D deficiency, unspecifiedNicotine dependence, cigarettes, uncomplicatedEncounte r for immunizationHepatitis A without hepatic comaEssential (primary) hypertensionFolate deficiency anemia, unspecifiedEncounter for screening for human immunodeficiency virusEncounter for screening for lipoid disordersEncounter for screening for diabetes mellitusOther seasonal allergic rhinitisMajor depressive disorder, recurrent, moderateGeneralized Anxiety DisorderEncounter for screening examination for other mental health and behavioral disordersEncounter for screening for depressionBody mass index [BMI] 32.0-32.9, adultEncounter for adult annual physical exam with abnormal findingEncntr screen mammogram for malignant neoplasm of breastEncounter for screening for nutritional disorderEncounter for screening for other metabolic disordersEncounter for screening for diseases of the blood and blood-forming organs and certain disorders involving the immune mechanism 2 Platt Moira. [address], [place], [id number], [place]. tel:[phone] [place] [address], [address] [place] [address], [address], [place] tel:[phone] [facility] No Information 2 Platt Moira. [address], [place], [id number], [place]. tel:[phone] [place] [address], [address] [place] [address], [facility], [place] tel:[phone] [facility] [place] No Information 1 Platt Moira. [address], [place], [id number], . tel:[phone] [facility], [address] [place] [address], [facility], tel:[phone] [facility] [place] No Information 1 Platt Moira. [address], [place], [address], [place]. tel:[phone] [place] [address], [address] [place] [address], [facility], tel:[phone] [facility] [place] No Information 1 Platt Moira. [address], [place], [address], [place]. tel:[phone] [place] [address], [address] [place] [address], [facility], tel:[phone] [facility] [place] No Information 1 Murad Shiva. [address] [place] [address], [facility], . tel:[phone] [place] [address], [address] [place] [address], [facility], tel:[phone] [facility] [place] No Information 1 Murad Umar. [address] [place] [address], [facility], . tel:[phone] [facility], [address] [place] [address], [facility], tel:[phone] [facility] [place] No Information 0 No Information [facility], [address] [place] [address], [facility], tel:[phone] [facility] No Information 0 No Information [facility], [address] [place] [address], [facility], tel:[phone] [facility] JL [place] No Information 0 No Information [facility], [address] [place] [address], [address], tel:[phone] [facility] No Information 0 No Information Family History Family Member Type Diagnosis Age At Onset Mother Problem Diabetes mellitus Brother Problem Alive and well Sister Problem Alive and well Sister Problem Alive and well Brother Problem Alive and well Father Problem (finding) Sister Problem Alive and well Sister Problem Alive and well Brother Problem Alive and well Immunizations Vaccine Date Status Comments Influenza virus vaccine, trivalent (IIV3), split virus, preservative free, 0.5 mL dosage, for intramuscular use administered Source: Ne w Immunization Record SARS-COV-2 (COVID-19) vaccin e, mRNA, spike protein, LNP, bivalent booster, preservative free, 30 mcg/0.3 mL dose, brown-sucrose formulation, 12 years and older ([facility]) administered Source: New Imm unization Record Influenza, injectable, quadrivalent, preservative free administered Note: [facility] ; Source: Other Registry SARS-COV-2 (COVID-19) vaccin e, mRNA, spike protein, LNP, preservative free, 30 mcg/0.3mL dose administered Note: [facility]NEW [facility] ; Source: Other Registry Influenza, injectable, quadrivalent, MDCK, preservative and antibiotic free, 0.5 mL dosage, Flucelvax Quad administered Source: Source Unspe cified COVID Brown-Suc (PFR 12+) administered Clarissa rce: Other Registry COVID-19 mRNA (PFR) administered Source: Other Registry COVID-19 mRNA (PFR) May-07-2021 administered Source: Other Registry Tdap, Adsorbed administered Source: Other Registry Td, UF administered Source: Other R egistry Payers Payer name Insurance type Covered green party ID Adolph lundberg(s) Mc[employer] Adv Wellcare CI [id number] [facility]- Medicaid Wellcare [facility] CI [id number] [facility]- Medicaid Wellcare Wrap Payer [id number] Mcr Adv Wellcare CI [id number] [facility]- Medicaid Wellcare [facility] CI [id number] Mc[employer] Wellcare CI [id number] [facility]- Medicaid Wellcare [facility] CI [id number] [facility]- Medicaid Wellcare Wrap Payer [id number] Social History Type Description Quantity Date Captured Comments Sex Female Smoking Status No Information Sexual Orientation Straight or heterosexual Dec Gender Identity Female Chief Complaint And Reason For Visit No Information Plan Of Treatment Date Type Action Status Goal Lipid panel. Due on due Goal ECG. Due on due Goal Tobacco screening. Due on due Goal Drug Abuse [place] Test (DAST). Due on due Goal Obtain Height, W eight, and BMI. Due on due Goal Influenza vaccine. Due on due Goal HPV. Due on due Goal Pap/HPV testing. Due on due Goal Follow up Plan f or abnormal BMI (Less than 18.5, greater than 25). Due on due Goal Tobacco Use Cess ation Counseling. Due on due Goal Unhealthy drug use screening due Goal Diabetes screening. Due on due Goal Vitamin B12. Due on due Goal Vitamin D. Due on due Goal Depression [place]. Due on due Goal CMP. Due on due Goal Urinalysis due Goal Obtain blood Pre ssure. Due on due Goal TSH. Due on due Goal Generalized Anxi ety Disorder - 7 (STEPHANY-7). Due on due Goal HPV testing. Due on 027 due Goal PAP. Due on due Goal Drug Abuse [place] Test (DAST-10). Due on due Goal HIV screen due Goal Hepatitis C Screening due Goal CBC. Due on due Goal Tobacco Use Scre ening. Due on due Goal Lifestyle education regardin g diet completed Goal Hepatitis C Screening due Goal Lipid panel. Due on 026 due Goal Follow up Plan f or abnormal BMI (Less than 18.5, greater than 25). Due on due Goal Depression [place]. Due on due Goal PAP. Due on due Goal Vitamin B12. Due on 024 due Goal Obtain Height, W eight, and BMI. Due on due Goal TSH. Due on due Goal Unhealthy drug use screening due Goal HPV. Due on due Goal FIT. Due on due Goal Colonoscopy. Due on 025 due Goal Generalized Anxi ety Disorder - 7 (STEPHANY-7). Due on due Goal CBC. Due on due Goal Tobacco Use Cess ation Counseling. Due on due Goal Vitamin D. Due on due Goal Pap/HPV testing. Due on due Goal Tobacco screening. Due on due Goal Mammogram. Due on due Goal Drug Abuse [place] Test (DAST-10). Due on due Goal Influenza vaccine. Due on due Goal FIT-DNA. Due on due Goal Urinalysis due Goal FOBT. Due on due Goal CMP. Due on due Goal Diabetes screening. Due on due Goal CT-Colonography. Due on due Goal Drug Abuse [place] Test (DAST). Due on due Goal HPV testing. Due on 027 due Goal HIV screen due Goal Tobacco Use Scre ening. Due on due Goal ECG. Due on due Goal Obtain blood Pre ssure. Due on due Goal FIT-DNA. Due on due Goal Follow up Plan f or abnormal BMI (Less than 18.5, greater than 25). Due on due Goal Vitamin B12. Due on 024 due Goal CMP. Due on due Goal TSH. Due on due Goal Drug Abuse [place] Test (DAST-10). Due on due Goal Mammogram. Due on due Goal Drug Abuse [place] Test (DAST). Due on due Goal Lipid panel. Due on 030 due Goal Tobacco Use Cess ation Counseling. Due on due Goal Generalized Anxi ety Disorder - 7 (STEPHANY-7). Due on due Goal Obtain Height, W eight, and BMI. Due on due Goal HIV screen due Goal Tobacco Use Scre ening. Due on due Goal Depression [place]. Due on due Goal Hepatitis C Screening due Goal CT-Colonography. Due on due Goal PAP. Due on due Goal Pap/HPV testing. Due on due Goal Unhealthy drug use screening due Goal Diabetes screening. Due on due Goal Colonoscopy. Due on 025 due Goal Vitamin D. Due on due Goal FIT. Due on due Goal Influenza vaccine. Due on due Goal ECG. Due on due Goal FOBT. Due on due Goal CBC. Due on due Goal Obtain blood Pre ssure. Due on due Goal Urinalysis. Due on due Goal Diabetes screening. Due on due Goal Colonoscopy. Due on 025 due Goal Vitamin D. Due on 4 due Goal Tobacco Use Cess ation Counseling. Due on due Goal Generalized Anxi ety Disorder - 7 (STEPHANY-7). Due on due Goal Obtain Height, W eight, and BMI. Due on due Goal FIT-DNA. Due on due Goal CMP. Due on due Goal Drug Abuse [place] Test (DAST-10). Due on due Goal Mammogram. Due on due Goal Influenza vaccine. Due on due Goal Tobacco Use Scre ening. Due on due Goal PAP. Due on due Goal Pap/HPV testing. Due on due Goal Obtain blood Pre ssure. Due on due Goal Depression [place]. Due on due Goal HIV screen due Goal Urinalysis. Due on due Goal FIT. Due on due Goal Drug Abuse [place] Test (DAST). Due on due Goal TSH. Due on due Goal Follow up Plan f or abnormal BMI (Less than 18.5, greater than 25). Due on due Goal Vitamin B12. Due on due Goal Lipid panel. Due on due Goal Unhealthy drug use screening due Goal FOBT. Due on due Goal CBC. Due on due Goal Hepatitis C Screening due Goal ECG. Due on due Goal CT-Colonography. Due on due Goal Depression [place]. Due on due Goal FIT-DNA. Due on due Goal CT-Colonography. Due on due Goal Vitamin D. Due on due Goal Tobacco Use Scre ening. Due on due Goal CMP. Due on due Goal HIV screen due Goal Influenza vaccine. Due on due Goal Mammogram. Due on 4 due Goal Vitamin B12. Due on due Goal Hepatitis C Screening due Goal FOBT. Due on due Goal Unhealthy drug use screening due Goal Drug Abuse [place] Test (DAST). Due on due Goal Generalized Anxi ety Disorder - 7 (STEPHANY-7). Due on due Goal Follow up Plan f or abnormal BMI (Less than 18.5, greater than 25). Due on due Goal FIT. Due on due Goal Pap/HPV testing. Due on due Goal TSH. Due on due Goal Lipid panel. Due on due Goal Tobacco Use Cess ation Counseling. Due on due Goal Obtain Height, W eight, and BMI. Due on due Goal Obtain blood Pre ssure. Due on due Goal Drug Abuse [place] Test (DAST-10). Due on due Goal Colonoscopy. Due on due Goal Diabetes screening. Due on due Goal PAP. Due on due Goal Urinalysis. Due on due Goal CBC. Due on due Goal ECG. Due on due Goal Diabetes screening. Due on due Goal Influenza vaccine. Due on due Goal Unhealthy drug use screening due Goal FIT. Due on due Goal Vitamin B12. Due on due Goal Hepatitis C Screening due Goal Depression scree catalina. Due on due Goal Tobacco Use Cess ation Counseling. Due on due Goal Drug Abuse Scree catalina Test (DAST-10). Due on due Goal CT-Colonography. Due on due Goal Lipid panel. Due on 028 due Goal PAP. Due on due Goal HIV screen due Goal CBC. Due on due Goal Obtain Height, W eight, and BMI. Due on due Goal Drug Abuse Scree catalina Test (DAST). Due on due Goal Tobacco Use Scre ening. Due on due Goal Vitamin D. Due on due Goal FIT-DNA. Due on due Goal Generalized Anxi ety Disorder - 7 (STEPHANY-7). Due on due Goal Urinalysis. Due on due Goal FOBT. Due on due Goal Mammogram. Due on due Goal Colonoscopy. Due on due Goal Obtain blood Pre ssure. Due on due Goal Follow up Plan f or abnormal BMI (Less than 18.5, greater than 25). Due on due Goal CMP. Due on due Goal Pap/HPV testing. Due on due Goal TSH. Due on due Goal ECG. Due on due Goal Vitamin B12. Due on due Goal Mammogram. Due on due Goal CT-Colonography. Due on due Goal Obtain Height, W eight, and BMI. Due on due Goal Vitamin D. Due on due Goal HIV screen due Goal Hepatitis C Screening due Goal Tobacco Use Cess ation Counseling. Due on due Goal Drug Abuse Scree catalina Test (DAST-10). Due on due Goal Lipid panel. Due on 028 due Goal FIT-DNA. Due on due Goal Diabetes screening. Due on due Goal Colonoscopy. Due on 024 due Goal CMP. Due on due Goal Follow up Plan f or abnormal BMI (Less than 18.5, greater than 25). Due on due Goal FOBT. Due on due Goal Drug Abuse Scree catalina Test (DAST). Due on due Goal FIT. Due on due Goal Tobacco Use Scre ening. Due on due Goal Depression scree catalina. Due on due Goal Unhealthy drug use screening due Goal Pap/HPV testing. Due on due Goal PAP. Due on due Goal Urinalysis. Due on due Goal Influenza vaccine. Due on due Goal Obtain blood Pre ssure. Due on due Goal ECG. Due on due Goal TSH. Due on due Goal Generalized Anxi ety Disorder - 7 (STEPHANY-7). Due on due Goal CBC. Due on due Goal Lifestyle education regardin g diet completed Goal Drug Abuse Scree catalina Test (DAST-10). Due on due Goal ECG. Due on due Goal Lipid panel. Due on 028 due Goal FIT-DNA. Due on due Goal PAP. Due on due Goal TSH. Due on due Goal Hepatitis C Screening due Goal Obtain Height, W eight, and BMI. Due on due Goal HIV screen due Goal Urinalysis. Due on due Goal Tobacco Use Scre ening. Due on due Goal Obtain blood Pre ssure. Due on due Goal CBC. Due on due Goal Depression scree catalina. Due on due Goal Generalized Anxi ety Disorder - 7 (STEPHANY-7). Due on due Goal Mammogram. Due on due Goal Diabetes screening. Due on due Goal Drug Abuse Scree catalina Test (DAST). Due on due Goal Tobacco Use Cess ation Counseling. Due on due Goal Pap/HPV testing. Due on due Goal CMP. Due on due Goal Vitamin D. Due on due Goal FIT. Due on due Goal Vitamin B12. Due on due Goal Colonoscopy. Due on due Goal Unhealthy drug use screening due Goal FOBT. Due on due Goal CT-Colonography. Due on due Goal Follow up Plan f or abnormal BMI (Less than 18.5, greater than 25). Due on due Goal Influenza vaccine. Due on due Goal Colonoscopy. Due on due Goal CT-Colonography. Due on due Goal PAP. Due on due Goal Follow up Plan f or abnormal BMI (Less than 18.5, greater than 25). Due on due Goal CMP. Due on due Goal Pap/HPV testing. Due on due Goal Influenza vaccine. Due on due Goal Tobacco Use Scre ening. Due on due Goal Depression scree catalina. Due on due Goal Lipid panel. Due on due Goal Vitamin D. Due on due Goal Unhealthy drug use screening due Goal Obtain Height, W eight, and BMI. Due on due Goal Drug Abuse Scree catalina Test (DAST). Due on due Goal Mammogram. Due on due Goal CBC. Due on due Goal Drug Abuse Scree catalina Test (DAST-10). Due on due Goal Diabetes screening. Due on due Goal Hepatitis C Screening due Goal HIV screen due Goal Urinalysis. Due on due Goal Generalized Anxi ety Disorder - 7 (STEPHANY-7). Due on due Goal TSH. Due on due Goal Obtain blood Pre ssure. Due on due Goal FIT-DNA. Due on due Goal FIT. Due on due Goal ECG. Due on due Goal Vitamin B12. Due on due Goal FOBT. Due on due Goal Tobacco Use Cess ation Counseling. Due on due Goal FOBT. Due on due Goal FIT-DNA. Due on due Goal Unhealthy drug use screening due Goal Depression scree catalina. Due on due Goal Influenza vaccine. Due on due Goal Urinalysis. Due on due Goal Vitamin B12. Due on due Goal TSH. Due on due Goal Generalized Anxi ety Disorder - 7 (STEPHANY-7). Due on due Goal Pap/HPV testing. Due on due Goal Lipid panel. Due on 028 due Goal CMP. Due on due Goal Vitamin D. Due on due Goal Obtain Height, W eight, and BMI. Due on due Goal Follow up Plan f or abnormal BMI (Less than 18.5, greater than 25). Due on due Goal CT-Colonography. Due on due Goal PAP. Due on due Goal Mammogram. Due on due Goal Obtain blood Pre ssure. Due on due Goal ECG. Due on due Goal Drug Abuse Scree catalina Test (DAST-10). Due on due Goal Tobacco Use Cess ation Counseling. Due on due Goal Tobacco Use Scre ening. Due on due Goal Colonoscopy. Due on due Goal Diabetes screening. Due on due Goal HIV screen due Goal CBC. Due on due Goal Hepatitis C Screening due Goal Drug Abuse Scree catalina Test (DAST). Due on due Goal FIT. Due on due Goal Vitamin B12. Due on due Goal Drug Abuse Scree catalina Test (DAST). Due on due Goal Tobacco Use Scre ening. Due on due Goal Vitamin D. Due on due Goal CBC. Due on due Goal HIV screen due Goal Follow up Plan f or abnormal BMI (Less than 18.5, greater than 25). Due on due Goal Depression scree catalina. Due on due Goal FIT. Due on due Goal Lipid panel. Due on [address]-Colonography. Due on due Goal PAP. Due on due Goal Hepatitis C Screening due Goal Drug Abuse Scree catalina Test (DAST-10). Due on due Goal FIT-DNA. Due on due Goal Influenza vaccine. Due on due Goal Pap/HPV testing. Due on due Goal Diabetes screening. Due on due Goal TSH. Due on due Goal FOBT. Due on due Goal Mammogram. Due on due Goal Obtain blood Pre ssure. Due on due Goal Colonoscopy. Due on 023 due Goal ECG. Due on due Goal Obtain Height, W eight, and BMI. Due on due Goal Urinalysis. Due on due Goal Generalized Anxi ety Disorder - 7 (STEPHANY-7). Due on due Goal CMP. Due on due Goal Tobacco Use Cess ation Counseling. Due on due Goal Unhealthy drug use screening due Goal Colonoscopy. Due on 023 due Goal CMP. Due on due Goal FIT. Due on due Goal PAP. Due on due Goal Diabetes screening. Due on due Goal Depression scree catalina. Due on due Goal TSH. Due on due Goal Tobacco Use Cess ation Counseling. Due on due Goal Vitamin B12. Due on 024 due Goal Tobacco Use Scre ening. Due on due Goal Unhealthy drug use screening due Goal Pap/HPV testing. Due on due Goal Obtain Height, W eight, and BMI. Due on due Goal Lipid panel. Due on 028 due Goal FOBT. Due on due Goal Vitamin D. Due on due Goal Hepatitis C Screening due Goal HIV screen due Goal Obtain blood Pre ssure. Due on due Goal Urinalysis. Due on due Goal ECG. Due on due Goal CT-Colonography. Due on due Goal Mammogram. Due on due Goal Drug Abuse Scree catalina Test (DAST). Due on due Goal Generalized Anxi ety Disorder - 7 (STEPHANY-7). Due on due Goal Influenza vaccine. Due on due Goal FIT-DNA. Due on due Goal CBC. Due on due Goal Follow up Plan f or abnormal BMI (Less than 18.5, greater than 25). Due on due Goal Drug Abuse Scree catalina Test (DAST-10). Due on due Goal Lifestyle education regardin g diet completed Goal HIV screen due Goal Depression scree catalina. Due on due Goal Pap/HPV testing. Due on due Goal CMP. Due on due Goal FOBT. Due on due Goal Influenza vaccine. Due on due Goal CBC. Due on due Goal Diabetes screening. Due on due Goal PAP. Due on due Goal Tobacco Use Cess ation Counseling. Due on due Goal Generalized Anxi ety Disorder - 7 (STEPHANY-7). Due on due Goal Vitamin D. Due on due Goal Hepatitis C Screening due Goal Drug Abuse Scree catalina Test (DAST-10). Due on due Goal FIT. Due on due Goal CT-Colonography. Due on due Goal FIT-DNA. Due on due Goal Vitamin B12. Due on 024 due Goal Tobacco Use Scre ening. Due on due Goal Lipid panel. Due on due Goal Follow up Plan f or abnormal BMI (Less than 18.5, greater than 25). Due on due Goal Colonoscopy. Due on due Goal TSH. Due on due Goal Unhealthy drug use screening due Goal Obtain Height, W eight, and BMI. Due on due Goal Drug Abuse Scree catalina Test (DAST). Due on due Goal Mammogram. Due on due Goal Urinalysis. Due on due Goal ECG. Due on due Goal Obtain blood Pre ssure. Due on due Goal CBC. Due on due Goal Depression scree catalina. Due on due Goal Mammogram. Due on due Goal Drug Abuse Scree catalina Test (DAST). Due on due Goal FIT. Due on due Goal PAP. Due on due Goal Hepatitis C Screening due Goal Drug Abuse Scree catal[place] Test (DAST-10). Due on due Goal Lipid panel. Due on due Goal Unhealthy drug use screening due Goal Tobacco Use Scre ening. Due on due Goal Vitamin D. Due on due Goal Follow up Plan f or abnormal BMI (Less than 18.5, greater than 25). Due on due Goal Colonoscopy. Due on due Goal Influenza vaccine. Due on due Goal Generalized Anxi ety Disorder - 7 (STEPHANY-7). Due on due Goal Diabetes screening. Due on due Goal CMP. Due on due Goal HIV screen due Goal Obtain Height, W eight, and BMI. Due on due Goal CT-Colonography. Due on due Goal TSH. Due on due Goal FIT-DNA. Due on due Goal Pap/HPV testing. Due on due Goal ECG. Due on due Goal Vitamin B12. Due on 024 due Goal FOBT. Due on due Goal Tobacco Use Cess ation Counseling. Due on due Goal Obtain blood Pre ssure. Due on due Goal Urinalysis. Due on due Goal Lifestyle education regardin g diet completed Goal Obtain Height, W eight, and BMI. Due on due Goal Hepatitis C Scre ening. Due on due Goal Colonoscopy. Due on 023 due Goal Unhealthy drug use screening due Goal Lipid panel. Due on due Goal TSH. Due on due Goal Drug Abuse Scree catalina Test (DAST-10). Due on due Goal Diabetes screening. Due on due Goal Pap/HPV testing. Due on due Goal CT-Colonography. Due on due Goal Depression scree catalina. Due on due Goal HIV screen due Goal Follow up Plan f or abnormal BMI (Less than 18.5, greater than 25). Due on due Goal Tobacco Use Scre ening. Due on due Goal Generalized Anxi ety Disorder - 7 (STEPHANY-7). Due on due Goal FOBT. Due on due Goal CBC. Due on due Goal PAP. Due on due Goal FIT. Due on due Goal FIT-DNA. Due on due Goal Mammogram. Due on 4 due Goal CMP. Due on due Goal Drug Abuse Scree catalina Test (DAST). Due on due Goal Influenza vaccine. Due on due Goal Urinalysis. Due on 23 due Goal Vitamin D. Due on 3 due Goal ECG. Due on due Goal Obtain blood Pre ssure. Due on due Goal Tobacco Use Cess ation Counseling. Due on due Goal Vitamin B12. Due on 023 due Goal Tobacco cessation counseling completed Goal Lifestyle education regardin g diet completed Goal Generalized Anxi ety Disorder - 7 (STEPHANY-7). Due on due Goal Drug Abuse Scree catalina Test (DAST-10). Due on due Goal CBC. Due on due Goal Lipid panel. Due on due Goal PAP. Due on due Goal Follow up Plan f or abnormal BMI (Less than 18.5, greater than 25). Due on due Goal Unhealthy drug use screening due Goal FIT. Due on due Goal Pap/HPV testing. Due on due Goal FOBT. Due on due Goal Colonoscopy. Due on due Goal FIT-DNA. Due on due Goal Mammogram. Due on due Goal Tobacco Use Cess ation Counseling. Due on due Goal CMP. Due on due Goal HIV screen due Goal Obtain Height, W eight, and BMI. Due on due Goal TSH. Due on due Goal Drug Abuse Scree catalina Test (DAST). Due on due Goal Vitamin D. Due on due Goal Depression scree catalina. Due on due Goal CT-Colonography. Due on due Goal Vitamin B12. Due on due Goal Urinalysis. Due on due Goal Influenza vaccine. Due on due Goal ECG. Due on due Goal Hepatitis C Scre ening. Due on due Goal Diabetes screening. Due on due Goal Obtain blood Pre ssure. Due on due Goal Tobacco Use Scre ening. Due on due Goal Tobacco cessation counseling completed Goal Tobacco Use Scre ening. Due on due Goal Vitamin D. Due on due Goal Depression scree catalina. Due on due Goal Lipid panel. Due on due Goal Hepatitis C Scre ening. Due on due Goal Diabetes screening. Due on due Goal Tobacco Use Cess ation Counseling. Due on due Goal TSH. Due on due Goal CMP. Due on due Goal HIV screen due Goal FIT-DNA. Due on due Goal Obtain Height, W eight, and BMI. Due on due Goal Unhealthy drug use screening due Goal FOBT. Due on due Goal Pap/HPV testing. Due on due Goal Follow up Plan f or abnormal BMI (Less than 18.5, greater than 25). Due on due Goal Drug Abuse Scree catalina Test (DAST). Due on due Goal Colonoscopy. Due on due Goal Drug Abuse Scree catalina Test (DAST-10). Due on due Goal Vitamin B12. Due on due Goal CT-Colonography. Due on due Goal CBC. Due on due Goal Urinalysis. Due on due Goal PAP. Due on due Goal Obtain blood Pre ssure. Due on due Goal FIT. Due on due Goal Mammogram. Due on due Goal Influenza vaccine. Due on due Goal ECG. Due on due Goal Generalized Anxi ety Disorder - 7 (STEPHANY-7). Due on due Goal Tobacco cessation counseling completed Goal Lifestyle education regardin g diet completed Goal Follow up Plan f or abnormal BMI (Less than 18.5, greater than 25). Due on due Goal Obtain Height, W eight, and BMI. Due on due Goal Hepatitis C Scre ening. Due on due Goal Drug Abuse Scree catalina Test (DAST). Due on due Goal Diabetes screening. Due on due Goal FOBT. Due on due Goal Colonoscopy. Due on due Goal Vitamin D. Due on due Goal TSH. Due on due Goal Lipid panel. Due on 023 due Goal HIV screen due Goal FIT-DNA. Due on due Goal Vitamin B12. Due on due Goal FIT. Due on due Goal Generalized Anxi ety Disorder - 7 (STEPHANY-7). Due on due Goal CBC. Due on due Goal CT-Colonography. Due on due Goal PAP. Due on due Goal Influenza vaccine. Due on due Goal Mammogram. Due on due Goal Unhealthy drug use screening due Goal Pap/HPV testing. Due on due Goal ECG. Due on due Goal Obtain blood Pre ssure. Due on due Goal Urinalysis. Due on due Goal Tobacco Use Scre ening. Due on due Goal Depression scree catalina. Due on due Goal CMP. Due on due Goal Drug Abuse Scree catalina Test (DAST-10). Due on due Goal Tobacco Use Cess ation Counseling. Due on due Goal Tobacco cessation counseling completed Goal Lifestyle education regardin g diet completed Goal Generalized Anxi ety Disorder - 7 (STEPHANY-7). Due on due Goal Diabetes screening. Due on 3 due Goal FIT-DNA. Due on due Goal PAP. Due on due Goal Hepatitis C Scre ening. Due on due Goal CBC. Due on due Goal Vitamin B12. Due on due Goal Depression scree catalina. Due on due Goal Tobacco Use Cess ation Counseling. Due on due Goal HIV screen due Goal Follow up Plan f or abnormal BMI (Less than 18.5, greater than 25). Due on due Goal Colonoscopy. Due on due Goal TSH. Due on due Goal Lipid panel. Due on due Goal CT-Colonography. Due on due Goal Influenza vaccine. Due on due Goal Drug Abuse Scree catalina Test (DAST-10). Due on due Goal Unhealthy drug use screening due Goal CMP. Due on due Goal Urinalysis. Due on due Goal Pap/HPV testing. Due on due Goal Tobacco Use Scre ening. Due on due Goal Mammogram. Due on due Goal ECG. Due on due Goal Obtain Height, W eight, and BMI. Due on due Goal Obtain blood Pre ssure. Due on due Goal FOBT. Due on due Goal Drug Abuse Scree catalina Test (DAST). Due on due Goal Vitamin D. Due on due Goal FIT. Due on due Goal Vitamin B12. Due on due Goal Depression scree catalina. Due on due Goal FIT-DNA. Due on due Goal Hepatitis C Scre ening. Due on due Goal PAP. Due on due Goal Tobacco Use Cess ation Counseling. Due on due Goal Colonoscopy. Due on due Goal Diabetes screening. Due on A due Goal CBC. Due on due Goal TSH. Due on due Goal CT-Colonography. Due on due Goal Tobacco Use Scre ening. Due on due Goal Drug Abuse Scree catalina Test (DAST-10). Due on due Goal Lipid panel. Due on due Goal Influenza vaccine. Due on due Goal CMP. Due on due Goal Mammogram. Due on due Goal Obtain Height, W eight, and BMI. Due on due Goal FOBT. Due on due Goal Drug Abuse Scree catalina Test (DAST). Due on due Goal Urinalysis. Due on due Goal Vitamin D. Due on due Goal Pap/HPV testing. Due on due Goal FIT. Due on due Goal Unhealthy drug use screening due Goal ECG. Due on due Goal Obtain blood Pre ssure. Due on due Goal Follow up Plan f or abnormal BMI (Less than 18.5, greater than 25). Due on due Goal HIV screen due Goal Generalized Anxi ety Disorder - 7 (STEPHANY-7). Due on due Goal Pap/HPV testing. Due on due Goal Follow up Plan f or abnormal BMI (Less than 18.5, greater than 25). Due on due Goal Generalized Anxi ety Disorder - 7 (STEPHANY-7). Due on due Goal Drug Abuse Scree catalina Test (DAST-10). Due on due Goal Unhealthy drug u se screening. Due on due Goal Tobacco Use Scre ening. Due on due Goal Influenza vaccine. Due on due Goal Obtain Height, W eight, and BMI. Due on due Goal PAP. Due on due Goal Colonoscopy. Due on 023 due Goal Urinalysis. Due on due Goal Hepatitis C Scre ening. Due on due Goal CMP. Due on due Goal Vitamin B12. Due on due Goal CBC. Due on due Goal Lipid panel. Due on due Goal CT-Colonography. Due on due Goal Depression scree catalina. Due on due Goal FOBT. Due on due Goal Tobacco Use Cess ation Counseling. Due on due Goal Mammogram. Due on due Goal FIT-DNA. Due on due Goal FIT. Due on due Goal TSH. Due on due Goal Vitamin D. Due on due Goal ECG. Due on due Goal HIV screen due Goal Drug Abuse Scree catalina Test (DAST). Due on due Goal Diabetes screening. Due on A due Goal Obtain blood Pre ssure. Due on due Goal Tobacco Use Cess ation Counseling. Due on due Goal CMP. Due on due Goal Influenza vaccine. Due on Se due Goal Tobacco Use Scre ening. Due on due Goal CT-Colonography. Due on due Goal Unhealthy drug u se screening. Due on due Goal Pap/HPV testing. Due on due Goal Lipid panel. Due on due Goal PAP. Due on due Goal Vitamin D. Due on due Goal Urinalysis. Due on due Goal Follow up Plan f or abnormal BMI (Less than 18.5, greater than 25). Due on due Goal Drug Abuse Scree catalina Test (DAST-10). Due on due Goal ECG. Due on due Goal HIV screen due Goal Mammogram. Due on due Goal Obtain Height, W eight, and BMI. Due on due Goal FIT-DNA. Due on due Goal FOBT. Due on due Goal TSH. Due on due Goal Hepatitis C Scre ening. Due on due Goal Drug Abuse Scree catalina Test (DAST). Due on due Goal Obtain blood Pre ssure. Due on due Goal Diabetes screening. Due on due Goal Colonoscopy. Due on due Goal Vitamin B12. Due on due Goal CBC. Due on due Goal FIT. Due on due Goal Depression scree catalina. Due on due Goal Generalized Anxi ety Disorder - 7 (STEPHANY-7). Due on due Goal PAP. Due on due Goal Tobacco Use Cess ation Counseling. Due on due Goal Lipid panel. Due on due Goal Vitamin D. Due on due Goal Mammogram. Due on due Goal Depression scree catalina. Due on due Goal Drug Abuse Scree catalina Test (DAST). Due on due Goal CBC. Due on due Goal Obtain Height, W eight, and BMI. Due on due Goal TSH. Due on due Goal FOBT. Due on due Goal ECG. Due on due Goal Tobacco Use Scre ening. Due on due Goal HIV screen due Goal Colonoscopy. Due on due Goal Generalized Anxi ety Disorder - 7 (STEPHANY-7). Due on due Goal Drug Abuse Scree catalina Test (DAST-10). Due on due Goal Obtain blood Pre ssure. Due on due Goal Diabetes screening. Due on due Goal Vitamin B12. Due on due Goal Urinalysis. Due on due Goal Hepatitis C Scre ening. Due on due Goal Follow up Plan f or abnormal BMI (Less than 18.5, greater than 25). Due on due Goal CT-Colonography. Due on due Goal CMP. Due on due Goal Pap/HPV testing. Due on due Goal Unhealthy drug u se screening. Due on due Goal Influenza vaccine. Due on Se due Goal FIT-DNA. Due on due Goal FIT. Due on due Goal Tobacco cessation counseling completed Goal Dietary manageme nt education, guidance, and counseling completed Goal Follow up Plan f or abnormal BMI (Less than 18.5, greater than 25). Due on due Goal Vitamin B12. Due on 023 due Goal TSH. Due on due Goal Depression scree catalina. Due on due Goal Drug Abuse Scree catalina Test (DAST). Due on due Goal Obtain Height, W eight, and BMI. Due on due Goal HIV screen due Goal CMP. Due on due Goal FOBT. Due on due Goal FIT. Due on due Goal Tobacco Use Cess ation Counseling. Due on due Goal CBC. Due on due Goal Vitamin D. Due on due Goal Hepatitis C Scre ening. Due on due Goal Pap/HPV testing. Due on due Goal CT-Colonography. Due on due Goal Drug Abuse Scree catalina Test (DAST-10). Due on due Goal Colonoscopy. Due on due Goal Tobacco Use Scre ening. Due on due Goal Influenza vaccine. Due on due Goal Generalized Anxi ety Disorder - 7 (STEPHANY-7). Due on due Goal Lipid panel. Due on due Goal Diabetes screening. Due on due Goal Mammogram. Due on due Goal Urinalysis. Due on due Goal Unhealthy drug u se screening. Due on due Goal ECG. Due on due Goal FIT-DNA. Due on due Goal Obtain blood Pre ssure. Due on due Goal CBC. Due on due Goal Tobacco Use Scre ening. Due on due Goal FOBT. Due on due Goal Colonoscopy. Due on due Goal Generalized Anxi ety Disorder - 7 (STEPHANY-7). Due on due Goal Pap/HPV testing. Due on due Goal Obtain Height, W eight, and BMI. Due on due Goal Follow up Plan f or abnormal BMI (Less than 18.5, greater than 25). Due on due Goal Tobacco Use Cess ation Counseling. Due on due Goal HPV testing. Due on due Goal Drug Abuse Scree catalina Test (DAST). Due on due Goal Depression scree catalina. Due on due Goal Vitamin B12. Due on 023 due Goal TSH. Due on due Goal CMP. Due on due Goal Drug Abuse Scree catalina Test (DAST-10). Due on due Goal Influenza vaccine. Due on due Goal Obtain blood Pre ssure. Due on due Goal Urinalysis. Due on 23 due Goal Vitamin D. Due on due Goal Lipid panel. Due on 023 due Goal Mammogram. Due on due Goal HIV screen due Goal ECG. Due on due Goal Diabetes screening. Due on due Goal Hepatitis C Scre ening. Due on due Goal Mammogram. Due on due Goal Tobacco Use Scre ening. Due on due Goal Urinalysis. Due on due Goal Tobacco Use Cess ation Counseling. Due on due Goal Obtain Height, W eight, and BMI. Due on due Goal Colonoscopy. Due on due Goal HIV screen due Goal Obtain blood Pre ssure. Due on due Goal ECG. Due on due Goal FOBT. Due on due Goal Follow up Plan f or abnormal BMI (Less than 18.5, greater than 25). Due on due Goal Depression scree catalina. Due on due Goal Diabetes screening. Due on due Goal Hepatitis C Scre ening. Due on due Goal TSH. Due on due Goal Vitamin D. Due on due Goal Influenza vaccine. Due on due Goal Drug Abuse Scree catalina Test (DAST). Due on due Goal Lipid panel. Due on due Goal Drug Abuse Scree catalina Test (DAST-10). Due on due Goal CMP. Due on due Goal Vitamin B12. Due on due Goal HPV testing. Due on due Goal CBC. Due on due Goal Pap/HPV testing. Due on due Goal Generalized Anxi ety Disorder - 7 (STEPHANY-7). Due on due Goal Diabetes screening. Due on due Goal TSH. Due on due Goal Drug Abuse Scree catalina Test (DAST-10). Due on due Goal Pap/HPV testing. Due on due Goal CMP. Due on due Goal CBC. Due on due Goal FOBT. Due on due Goal Follow up Plan f or abnormal BMI (Less than 18.5, greater than 25). Due on due Goal Hepatitis C Scre ening. Due on due Goal Tobacco Use Scre ening. Due on due Goal Colonoscopy. Due on due Goal Tobacco Use Cess ation Counseling. Due on due Goal Obtain Height, W eight, and BMI. Due on due Goal Mammogram. Due on due Goal HIV screen due Goal Vitamin B12. Due on due Goal Vitamin D. Due on due Goal Depression scree catalina. Due on due Goal Lipid panel. Due on due Goal Influenza vaccine. Due on due Goal Generalized Anxi ety Disorder - 7 (STEPHANY-7). Due on due Goal Drug Abuse Scree catalina Test (DAST). Due on due Goal ECG. Due on due Goal Obtain blood Pre ssure. Due on due Goal Urinalysis. Due on due Goal Tobacco cessation counseling completed Goal Lifestyle education regardin g diet completed Goal Colonoscopy. Due on due Goal Generalized Anxi ety Disorder - 7 (STEPHANY-7). Due on due Goal Pap/HPV testing. Due on due Goal Influenza vaccine. Due on due Goal Lipid panel. Due on due Goal CMP. Due on due Goal Depression scree [place]. Due on due Goal CBC. Due on due Goal Mammogram. Due on due Goal HIV screen. Due on due Goal Follow up Plan f or abnormal BMI (Less than 18.5, greater than 25). Due on due Goal Diabetes screening. Due on S due Goal Hepatitis C Scre ening. Due on due Goal Drug Abuse Scree catalina Test (DAST). Due on due Goal FOBT. Due on due Goal Drug Abuse Scree catalina Test (DAST-10). Due on due Goal Tobacco Use Cess ation Counseling. Due on due Goal Obtain Height, W eight, and BMI. Due on due Goal TSH. Due on due Goal HPV testing. Due on due Goal Tobacco Use Scre ening. Due on due Goal Vitamin B12. Due on due Goal Urinalysis. Due on due Goal Vitamin D. Due on due Goal ECG. Due on due Goal Obtain blood Pre ssure. Due on due Goal Tobacco cessation counseling completed Goal Dietary manageme nt education, guidance, and counseling completed Goal Depression scree [place]ina. Due on due Goal HIV screen. Due on due Goal Drug Abuse Scree [place]ina Test (DAST). Due on due Goal Influenza vaccine. Due on due Goal FOBT. Due on due Goal Pap/HPV testing. Due on due Goal Mammogram. Due on due Goal Colonoscopy. Due on due Goal Generalized Anxi ety Disorder - 7 (STEPHANY-7). Due on due Goal Lipid panel. Due on due Referral Ordered: SCR MAMMO BI INCL CAD Bilateral breast Appointment date/timeframe: 01/18/2025 ordered Referral Ordered: LOWER EXTREMITY STUDY Bilateral legs Appointment date/timeframe: 01/18/2025 ordered Referral Ordered: X-RAY EXAM OF ELBOW Left elbow Appointment date/timeframe: 1 Day ordered Referral Ordered: X-RAY EXAM OF HAND Right hand Appointment date/timeframe: 1 Day ordered Referral Referred To: Dr. Escobar Harris [address] [place], [address] [phone] Ordered: Referrals: Chiropractic Medicine. Dr. Escobar Harris. Evaluate and treat Appointment date/timeframe: 1 Week ordered Referral Referred To: [facility] Ordered: Referrals: Radiotherapy. [facility]. Location: [place]. Diagnostic testing Appointment date/timeframe: 6 Months ordered Future Order: Lab Order Anemia P rofile B ([id number]), Collected on: Ordered Future Order: Lab Order Comp. Me tabolic Panel (14) ([id number]), Collected on: Ordered Future Order: Lab Order Hemoglob in A1c ([id number]), Collected on: Ordered Future Order: Lab Order Lipid Pa kim ([id number]), Collected on: Ordered Future Order: Lab Order TSH Rfx on Abnormal to Free T4 ([id number]), Collected on: Ordered Future Order: Lab Order Vitamin D, 25-Hydroxy ([id number]), Collected on: Ordered History Of Present Illness Encounter Date Complaint History Of Prese nt Illness legs continued Angie legs have se veral areas of cellulitis. One abrasion on right coyle approximately 3 inches long, with delayed healing time. Left knee has larger healing abrasion, as well as small puncture wound on lateral side of calf approximately pea sized. She is unsure how she acquired wounds, but states possibly from mowing and weed eating her yard. She does not recall when this started.She states that when she has walked and then rest, the next time she gets up it is painful in her calves and thighs. She does have some petichial rash on angie lower extremities.Family members (sister, mother) has hx of clots and poor circulation.She denies chest pain, soa, dizziness.Will order angie duplex doplar to r/o blockage. mammogram and pap Due for mammog erin- last was July 2022Needs pap- was due 02/07Needs colonoscopy or FOBT Labs Pt is here today to have fasting labs collected. 1x attempt in right ac with butterfly needle. Successfully collected 3 tubes, pt tolerated well, gauze and coban applied, pt instructed to remove in 5-10 minutes, pt voiced understanding. Pt is scheduled to rtc in 2 weeks to follow up on lab results. Rash The client prese nts for Rash. This episode began 2 days ago. The symptom(s) are described as moderate and worse. Affected area(s) include both legs. The symptoms are not associated with contact with chemicals, contact with plants, new perfume, new skin soaps/lotions, rash began before age 4, recent medicines, recent travel and stress. The symptoms are not relieved by antihistamines or topical steroids. B12 injection Pt is here today to receive a B12 injection. Administered into right deltoid, pt tolerated well, band aide applied. Medication Refills Pt is needing refills on all of her medications today. b12 injection Danica is here today for monthly b12 injection. She voices no concerns at this time. f/u labs Danica is here today for f/u on recent labsoverall [id number] up slightly 5.8ALT 131- takes lots of tylenol- told her to avoid tylenol for nowVit D low at 19.8RTC 1 month and repeat CMPif still elevated will further [id number] injection on or after the of this month telehealth Patient and/or G james has verified being in the [facility] and has given verbal consent to be treated via telehealth/telephone consultation. Today's visit is being completed via; Telephone.Patient and/or Guardian provided full consent to use this technology. Patient and/or guardian was advised of the limitations of a video/phone visit via telehealthProvider completed this visit within his/her office. Patient's location during this visit- Patients workplace. Fasting Labs Pt is here this morning to have fasting labs collected. Successfully collected 3 tubes, pt tolerated well. Pt is scheduled to rtc in 1 week to follow up on lab results. B12 injection Pt is here this morning to receive her monthly b12 injection. Administered into right deltoid, pt tolerated well. Pt is scheduled to rtc in 1 month to have next monthly b12 injection.She is also here for fasting labs- collectedRTC 1 week f/u lab results b12 injection Pt is here to re ceive her monthly b12 injection. Administered into right deltoid, Lot# [id number], exp: . Pt tolerated well, band aid applied. Pt is scheduled to rtc in 1 month to receive her next monthly b12 injection. Flu Vaccine Danica is here today to receive a flu vaccine. Administered influenza vaccine afluria into left deltoid. Pt tolerated well, band aid applied. Lot# [id number], Exp: 05.31.25 monthly b12 Dorian is here today for monthly b12 injReports needs refills on medications- sent to pharmacy Fractured Rib Danica is here today for follow up after a recent fall and a visit to [facility] at [facility]. Pt states that she was cleaning her bathroom light fixture with one foot on the sink and one foot on the toilet seat when the toilet seat slide out from under her and she fell. When she fell her left upper torso caught the sink. Pt [place] [facility] with a broken rib with a displaced piece of bone. Pt needs referral. [facility] referred her out but when she contacted the provider office they stated that they do not treat broken ribs.Today she is no apparent distress, no chest flail, no soa. Minimal pain.She is using her incentive spirometer. Ortho does not usually treat fractured ribs- confirmed w/ consult to Dr. uDque. Pt was informed to return for any new concern, and if any new cough/congestion (suspicion of PNA) or new shortness of air to RTC promptly. She voiced understanding. B12 INJECTION Danica is here today to receive her monthly b12 injection. Administered into right deltoid. Pt tolerated well, band aid applied. depression screening Depression screening completed on 10/27/2023. Patient scored a 2.-KB,CM KAYODE HEADLEY complete d on 10/27/2023.-KB,CM B12 INJECTION DANICA IS HERE TODAY TO RECEIVE HER MONTHLY B12 INJECTION. ADMINISTERED INTO RIGHT DELTOID, BAND AID APPLIED. SORE THROAT AND COUGH Pt is here today after having a sore throat and cough for 2 weeks. 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 Pt reports she lost her voice last week and just started coming back yestereday. Pt has a lot of nasal congestion and feels like she can't get it out. B12 INJECTION DANICA IS HERE THIS MORNING FOR HER MONTHLY B12 INJECTION. ADMINISTERED INTO RIGHT DELTOID. PT TOLERATED WELL, BAND AID APPLIED. left elbow pain. She also report s having fluid on her left elbowThis began 1 month agoShe denies acc/injuryswelling and fluid notedxray on 03/08/23- no acute fracturewould like to have fluid drained injection today Monthly b12 and elbow pain Jyoti carrillo is here today for a montly b12 injection.She also reports having fluid on her left elbowThis began 1 month agoShe denies acc/injuryswelling and fluid notedxray today/tomorrowconsider aspiration/fluid analysis. INJECTION DANICA IS HERE THIS AFTERNOON TO RECEIVE HER MONTHLY B12 INJECTION. ADMINISTERED INTO RT DELTOID, PT TOLERATED WELL, BAND AID APPLIED. FOLLOW UP FROM ER SIT FOR BROKEN TOE Danica is here today to follow up after visiting the ER. Pt states that she had xrays done in the ER on 12.04.22 at [facility] where they confirmed that she had broken her right pinky toe in [address]. Pt states that there was also a large clear blister that popped up on that same toe, nearly covering the whole toe. Pt went back to the ER on 12.11.22 due to the large blister on right pinky toe. It was then confirmed by BALBINA Van that it was a blood blister. It has since scabbed up and is not painful at this time. Orthopedic referral had been given to Dr. Hamlin at [facility], but pt has not made an appointment and states it has improved. No other complaints at this time.Cellulitis on left inner ankle has resolved. Monthly B12 given today in left deltoid, bandaid applied, pt tolerated well. Monthly B12 injection. Pt voiced no complaints.Pt states she had mammogram in 2022 at [facility]. Sending for results.Pt refused colonoscopy, reminded pt to bring in FOBT.Denies external medical or ER visits. Wound check. Wound has improv ed with wet to dry dressing. Diameter is measuring 3 mm. Erythema has decreased. No pus, or purulent drainage noted. Pt instucted to stop wet to dry dressings, leave wound open to air, and to cleanse daily with saline/steril water. Continue to apply mupriocin daily. Follow up on Wound Danica is h ere today for a follow up on wound on left ankleShe states it is not painful, but redness is worse, with center of wound scabbedShe states she has finished doxycyline and is compliant with mupriocinShe was taught today today how to do a wet to dry dressing, to see if improved.Denies fever, chillsI will send course of clindamycin If not improving after 1 week, wound consult may be necessaryThere is not purulent drainageArea of erythema measures 5 mm in diameter todaytwo areas of dime and nickel sized scabwarm to touchno edemaPt also has rt hand pain and swelling x yesterday after "jamming her finger playing basketball with her son.It is the 3rd digit on her rt handPassive ROM wnlif not improved in 2 days, may get an xray of rt hand wound This is a follow up visit. The injury occurred 20 days ago. Symptoms related to the injury have worsened. The trauma occurred due to a direct blow while at home approximately 20 days ago. Date of last tetanus: 08/03/2018. Mechanism of injury details: a rock struck her while weedeating her yard.Previous diagnostic studies and/or treatments that have been performed/administered include medication(s) (doxycylcline) on 10/15/2022 and medication(s) (mupirocin) on 10/15/2022. Previous diagnostic studies and/or treatments that have not been performed/administered include a biopsy, an excision, foreign body removal, an incision/drainage and sutures. The client denies any aggravating factors. The client had a poor response to medication(s) (mupirocin) and a fair response to medication(s) (doxycycline 100 mg). The injury is associated with localized swelling and poor wound healing. The client denies any chills, fever, headache and rash. wound This is an initi al visit. The injury occurred 1 month ago. Symptoms related to the injury have improved. A trauma occurred. The injury was not work related. Date of last tetanus: 08/03/2018. Mechanism of injury details: hit with a rock while weed eating.Previous diagnostic studies and/or treatments that have been performed/administered include medication(s) (tripple antibiotic ointment). Previous diagnostic studies and/or treatments that have not been performed/administered include a biopsy. The client denies any aggravating factors. Interventions the Client has tried have not provided any relief. The client denies any chills, decreased mobility, fatigue, fever, headache, joint pain, localized swelling, lymphadenopathy and malaise. Additional information: healing wound, but delayed healing time. B12 INJECTION DANICA IS HERE TODAY TO RECEIVE HER MONTHLY B12 INJECTION. PT TOLERATED WELL. BAND AID APPLIED. PT TO RTC IN 1 MONTH FOR NEXT MONTHLY B12 INJECTION. B12 injection Danica is here today to receive her monthly B12 injection. Pt to RTC in 1 month for next B12. Pt scheduled appointment before leaving the clinic. Injection Patient here for #6/6 B12 injection, after receiving this one per Moira Platt APRN to return in one month for monthly B12 injections dental/jaw pain Dorian is here today for dental/jaw painThis began last week, but has had a bad left upper molar x 2 yearsShe reports pain and facial swellingshe was supposed to have a filling placed, but did not- states I need all my teeth pulledAdvised that she f/u with dentist.She is allergic to pcn- hivesthinks has taken doxy before w/o problemPt is also here for her B12 # 5 of 6 injectionWants referral to Chiropracter so that inusrance will pay for itSHe was see for this [facility] DANICA IS HERE TODAY TO RECEIVE B12 INJECTION #4 OF 6. PT TO RTC IN 1 WEEK FOR INJECTION #5. PT STATED THAT HER BLOOD PRESSURE WAS HIGH THIS MORNING. PT STATES THAT IT HAS BEEN RUNNING 200+/100+. TODAY IN THE CLINIC THE PT'S BP IS 133/77 IN LT ARM WHILE SITTING. PT INSTRUTED TO BRING AT HOME BP MACHINE IN AT NEXT VISIT IF SHE CONTINUES TO GET HIGH READINGS. PT STATED THAT SHE WENT TO SEE [facility] BUT HER INSURANCE WILL NOT PAY WITHOUT A REFERRAL FROM HER PCP. PROVIDER AWARE AND IS REFERRING PT TO [facility] FOR NECK/SHOULDER/BACK PAIN. B12 INJECTION DANICA IS HERE TODAY TO RECEIVE B12 INJECTION #3 OF 6. PT TO RTC IN 1 WEEK FOR INJECTION #4. B12 INJECTION DANICA IS HERE TODAY TO RECEIVE B12 INJECTION #2 OF 6. PT TO RTC IN 1 WEEK FOR INJECTION #3. Follow up on medication Danica is here today to follow up on medication and to have fasting labs.Previous labs all ok- she did not follow up but was notified.Her B12 was in the 200'sB12 injection today to start 6 week seriesCOPD- ok only using albuterol once monthlyStill smoking 1ppdnot ready to quitAnxiety controlled- doing well on escitalipram and bupropion.Still on suboxone- [facility] other complaints todayfasting labs todayRTC 6 months for complete f/uRTC next week for B12 #2current on flu and covid vaccinesDue for Pneumonia, tdap, and Shingles vaccines- pt to obtain at local pharmacy Fasting Labs Routine Followup Dorian is here today for her 6 mo fuShe states she is in need of refillsSmokingnot ready to quitHTN- lisinoprilCOPD- Rescue inhaler onlyDepression- Lexapro, welbutrindoing well Instructions Date Instruction Additional Infor hayley elevate legs when se ated or supine; compression stockings to reduce swelling. If diuretics prescribed, use as directed. Limit sodium intake Related to Edema Take all antibiotics until complete. May take with food to ease stomach irritation. If you experience frequent yeast infections, you may consider taking an OTC probiotic like culturell or align while taking antibiotics.Keep area clean and dry. Apply mupirocin two times daily to wounds. Related to Cellulitis fasting labs todayRT C 2 weeks f/u on resultslow fat diet- no greasy,, fried, fatty foods Related to Abnormal results of liver function studies Patient educated on the importance of maintaining glycemic control. Counseled on diet, exercise and other lifestyle factors that can impact glucose control. Instructed on the importance of taking all medications as prescribed. Patient aware of the importance of diabetic eye exams, dental check ups, foot exams and diabetic foot care. Patient verbalized understanding. Related to Prediabetes 15 minutes of sun ex posure daily to naturally raise vitamin D levels Related to Vitamin D deficiency, unspecified It is recommended to stop smoking/vaping to increase overall health and decrease risk of cardiovascular disease. If you wish to stop smoking/vaping, there is a free online [place] from smoking course offered through our local health department. You may call [phone] for more information. Related to Nicotine dependence, cigarettes, uncomplicated Patient currently do ing well. BP in goal range. No medication changes. Patient instructed to follow a low salt diet, continuing taking blood pressure medications as prescribed. Keep routine follow up with clinic. Related to Essential (primary) hypertension B-12 injection given in office today. Eat foods rich in B-12. Additional oral B12 replacement if indicated. Related to Vitamin B12 deficiency Giving encouragement to exercise Related to Body mass index [BMI] 29.0-29.9, adult Lifestyle education regarding di et Related to Body mass index [BMI] 29.0-29.9, adult Patient educated on the importance of maintaining glycemic control. Counseled on diet, exercise and other lifestyle factors that can impact glucose control. Instructed on the importance of taking all medications as prescribed. Patient aware of the importance of diabetic eye exams, dental check ups, foot exams and diabetic foot care. Patient verbalized understanding. Related to Prediabetes avoid ETOH, and tyel enolRTC 1 month repeat labs Related to Abnormal results of liver function studies 15 minutes of sun ex posure daily to naturally raise vitamin D levels Related to Vitamin D deficiency, unspecified Physical activity as tolerated. Try to engage in some form of moderate physical activity for 30 minutes most days of the week. May modify activity as needed to reduce discomfort. Try to achieve/maintain a healthy body weight to reduce strain on musculoskeletal system. Verbalizes an understanding. Related to Body mass index [BMI] 31.0-31.9, adult B-12 injection given in office today. Eat foods rich in B-12. Additional oral B12 replacement if indicated. Related to Vitamin B12 deficiency Continue to use tasneem Salsa Bear Studiosive spirometer throughout the dayContact the clinic if you have new shortness of breath, difficulty breathing, productive cough or fever.RTC 1 month for next B12 injection. Related to Fracture of one rib, left side, sequela Giving encouragement to exercise Related to Body mass index [BMI] 31.0-31.9, adult Lifestyle education regarding di et Related to Body mass index [BMI] 31.0-31.9, adult Keep area as dry as possibleUse nystatin cream two times daily RTC 2 weeks f/u rash Related to Candidiasis, unspecified B-12 injection given in office today. Eat foods rich in B-12. Additional oral B12 replacement if indicated. Related to Vitamin B12 deficiency Patient counseled on doing warm salt water gargles, completing any and all medications prescribed, may use OTC analgesics as needed. Take all antibiotics until complete. May take with food to ease stomach irritation. If you experience frequent yeast infections, you may consider taking an OTC probiotic like culturell or align while taking antibiotics, or eating yogurt (daily) with active cultures. Related to Streptococcal sore throat Take ibuprofen or ac etaminophen per packing instructions. Increase your oral intake of fluids. Encourage oral intake of fluids, water, Popsicles, juice, jello every 15 minutes to maintain adequate hydration. Rest.If your child is unable to produce urine, tears or salivia, go to the ER. Related to Fever Drink plenty of flui ds. Take rest. Monitor oxygen saturation and heart rate. Go to the ER if resting oxygen saturation stays below 88%, or if any AMS, worsening dyspnea, chest pain, or other concerning symptoms. Verbalizes an understanding of all. Related to COVID-19 B-12 injection given in office today. Eat foods rich in B-12. Additional oral B12 replacement if indicated. Related to Vitamin B12 deficiency rest, ice, compressi on as instructed to reduce post joint injection(s) pain and swelling Related to Other bursitis of elbow, left elbow If elbow is not hurt ing or bothering you we will continue to monitor.Xray orderd today.Possible joint arthrocentisis if necesaryRTC after xray Related to Other bursitis of elbow, left elbow B-12 injection given in office today. Eat foods rich in B-12. Additional oral B12 replacement if indicated. Related to Vitamin B12 deficiency Giving encouragement to exercise Related to Body mass index [BMI] 33.0-33.9, adult Lifestyle education regarding di et Related to Body mass index [BMI] 33.0-33.9, adult Physical activity as tolerated. Try to engage in some form of moderate physical activity for 30 minutes most days of the week. May modify activity as needed to reduce discomfort. Try to achieve/maintain a healthy body weight to reduce strain on musculoskeletal system. Verbalizes an understanding. Related to Body mass index [BMI] 33.0-33.9, adult continue to elevate foot when not in use Monitor for new signs or symptoms of worsening Related to Fracture of right toe, subsequent encounter for fracture w/ routine healing B-12 injection given in office today. Eat foods rich in B-12. Additional oral B12 replacement if indicated. Related to Vitamin B12 deficiency Giving encouragement to exercise Related to Body mass index [BMI] 33.0-33.9, adult Lifestyle education regarding di et Related to Body mass index [BMI] 33.0-33.9, adult Pt instructed to sto p wet to dry dressings, leave wound open to air, and to cleanse daily with saline/sterile water. Continue to apply mupriocin daily. Related to Cellulitis B-12 injection given in office today. Eat foods rich in B-12. Additional oral B12 replacement if indicated. Related to Vitamin B12 deficiency It is recommended to stop smoking/vaping to increase overall health and decrease risk of cardiovascular disease. If you wish to stop smoking/vaping, there is a free online [place] from smoking course offered through our local health department. You may call [phone] for more information. Related to Nicotine dependence, cigarettes, uncomplicated Patient instructed o f the importance of taking medications as prescribed, following a low salt diet as well as getting physical activity as tolerated. Patient advised to keep BP log daily checking each morning and before bed. Patient to call the clinic if systolic blood pressure is greater than 150 and/or diastolic blood pressure is staying greater than 90. Related to Essential (primary) hypertension Giving encouragement to exercise Related to Body mass index [BMI] 32.0-32.9, adult Lifestyle education regarding di et Related to Body mass index [BMI] 32.0-32.9, adult rest, ice, compressi on as instructed to reduce post joint injection(s) pain and swellingif swelling does not go down, or pain increases, go to out patient radiology at [facility] to have xray of rt hand completed. You may use a velcro splint for comfort. Take tylenol or ibuprofen for pain as per packing instruction. RTC 2 days if not improved. Related to Contusion of right hand, initial encounter It is recommended to stop smoking/vaping to increase overall health and decrease risk of cardiovascular disease. If you wish to stop smoking/vaping, there is a free online [place] from smoking course offered through our local health department. You may call [phone] for more information.Smoking can delay wound healing and increase risks for osteoprosis. Related to Nicotine dependence, cigarettes, uncomplicated Keep area clean and dry. Continue to use mupirocin ointment to affected are two times daily. Take all antibiotics until complete. If you do not have any improvement in 3 days, please come back to the office for reevaluation and possible referral to wound care. Related to Cellulitis Giving encouragement to exercise Related to Body mass index [BMI] 32.0-32.9, adult Lifestyle education regarding di et Related to Body mass index [BMI] 32.0-32.9, adult Take all antibiotics until complete. May take with food to ease stomach irritation. If you experience frequent yeast infections, you may consider taking an OTC probiotic like culturell or align while taking antibiotics, or eating yogurt (daily) with active cultures.Apply mupirocin ointment to area 2 x dailyKeep wound clean, wash with mild soap and water, pat dry. Related to Cellulitis Physical activity as tolerated. Try to engage in some form of moderate physical activity for 30 minutes most days of the week. May modify activity as needed to reduce discomfort. Try to achieve/maintain a healthy body weight to reduce strain on musculoskeletal system. Verbalizes an understanding. Related to Body mass index [BMI] 32.0-32.9, adult B-12 injection given in office today. Eat foods rich in B-12. Additional oral B12 replacement if indicated. Related to Vitamin B12 deficiency Giving encouragement to exercise Related to Body mass index [BMI] 32.0-32.9, adult Lifestyle education regarding di et Related to Body mass index [BMI] 32.0-32.9, adult B-12 injection given in office today. Eat foods rich in B-12. Additional oral B12 replacement if indicated. Related to Vitamin B12 deficiency Use 15 ml peridex tw o times dailyTake all anitbiotics until completeMake an appt with dentist for close follow up and possible tooth extraction. 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 Discussed conservative measures such as heat, ice, gentle strength stretching, and core muscle strengthening. Avoid heavy lifting, pulling, or tugging. Contact the clinic if any worsening or new symptoms related to back pain occur. Related to Dorsalgia, unspecified Physical activity as tolerated. Try to engage in some form of moderate physical activity for 30 minutes most days of the week. May modify activity as needed to reduce discomfort. Try to achieve/maintain a healthy body weight to reduce strain on musculoskeletal system. Verbalizes an understanding. Related to Body mass index [BMI] 32.0-32.9, adult Giving encouragement to exercise Related to Body mass index [BMI] 32.0-32.9, adult Dietary management e ducation, guidance, and counseling Related to Body mass index [BMI] 32.0-32.9, adult Schedule your next m ammogram sometime after 08/05/22. Related to Encntr screen mammogram for malignant neoplasm of breast Patient currently do ing well. BP in goal range. No medication changes. Patient instructed to follow a low salt diet, continuing taking blood pressure medications as prescribed. Keep routine follow up with clinic. Related to Essential (primary) hypertension It is recommended to stop smoking to increase overall health and decrease risk of cardiovascular disease. If you wish to stop smoking, there is a free online [place] from smoking course offered through our local health department. You may call [phone] for more information. Related to Nicotine dependence, cigarettes, uncomplicated Take medications as prescribed. Follow a sleep schedule. Try to engage in 30 minutes of moderate activity daily if tolerated, as exercise has been shown to improve depression symptoms Related to Major depressive disorder, recurrent, moderate B-12 injection given in office today. Eat foods rich in B-12. Additional oral B12 replacement if indicated. Related to Vitamin B12 deficiency Giving encouragement to exercise Related to Body mass index [BMI] 32.0-32.9, adult Lifestyle education regarding di et Related to Body mass index [BMI] 32.0-32.9, adult Techniques discussed include aversive conditioning, smoke free car and smoke free house.The patient is to be scheduled for counseling for sessions. Related to Tobacco use Continue your multiv itamin, get out in the sun at least 15 min daily Related to Vitamin D deficiency, unspecified Flu shot and Covid 19 booster va ccine. Related to Encounter for immunization Take medications as prescribed. Follow a sleep schedule. Try to engage in 30 minutes of moderate activity daily if tolerated, as exercise has been shown to improve depression symptoms Related to Major depressive disorder, recurrent, moderate It is best to not sm ej. I am willing to work with you to help you quit smoking if you want to. Related to Nicotine dependence, cigarettes, uncomplicated Continue to take OTC Folic acid or multivitaminFasting labs today to include b12 Related to Folate deficiency anemia, unspecified Discussed stress red uction techniques. Take medications as prescribed. Limit caffeine and nicotine. Try to follow a set sleep schedule. Get daily moderate exercise if able to tolerate. Related to Generalized Anxiety Disorder Patient instructed o f the importance of taking medications as prescribed, following a low salt diet as well as getting physical activity as tolerated. Patient advised to keep BP log daily checking each morning and before bed. Patient to call the clinic if systolic blood pressure is greater than 150 and/or diastolic blood pressure is staying greater than 90. Related to Essential (primary) hypertension Giving encouragement to exercise Related to Body mass index [BMI] 31.0-31.9, adult Dietary management e ducation, guidance, and counseling Related to Body mass index [BMI] 31.0-31.9, adult Assessments Type Assessment Date No Information
--- NOTE | 2025-01-18 13:31 | MM_ITS ---
PROCEDURE INFORMATION: Exam: MG Bilateral Screening 3D Mammography Exam date and time: 01/18/2025 1:31 PM Age: 60 years old Clinical indication: Screening examination TECHNIQUE: Imaging protocol: Bilateral Screening tomosynthesis and 2D mammography including computer-aided detection (CAD) when performed. COMPARISON: 1. MG MM DIG SCREENING MAMM BI W/CAD 08/14/2022 1:43 PM 2. MG MM DIG SCREENING MAMM BI W/CAD 08/05/2021 12:57 PM FINDINGS: MAMMOGRAPHY: Breast composition: There are scattered areas of fibroglandular density. Mass: None. Architectural distortion: None. Calcifications: No suspicious calcifications. Asymmetric density: None. Skin thickening: None. Axillary adenopathy: None. IMPRESSION: No mammographic evidence of malignancy. Annual screening is recommended unless otherwise clinically indicated. ASSESSMENT: BI-RADS Category 1: Negative.
--- OUTSIDE RECORDS SUMMARY | 2025-01-18 13:31 | XMS_ITS | Patient Health Record ---
Author Organization [facility] [place] Address [address] [place] [address] Support Name Relationship Address Phone GREY EDMONDS Emergency Contact Unknown DANICA SIMPSON Guarantor Unknown Reason For Referral No Information Medications Medication SIG (Take, Route, Frequency, Duration) Notes Start Date End Date Status CeleXA 20 MG Tablet One tablet Daily Oral Migrated to Version 5 from a previous version. 11/23/2011 Active Cyclobenzaprine HCl 10 MG Tablet One tablet Twice Daily Oral Migrated to Version 5 from a previous version. 03/31/2013 Active Amitriptyline HCl 50 MG Tablet One tablet QHS Oral Migrated to Version 5 from a previous version. 09/09/2012 Active Ambien 10 MG Tablet One tablet QHS Oral Migrated to Version 5 from a previous version. 04/03/2011 Active Neurontin 600 MG Tablet One tablet Three Times a Day Oral Migrated to Version 5 from a previous version. 06/29/2011 Active ZOLOFT 50 MG One tablet Twice Daily Migrated to Version 5 from a previous version. *Reorder from [facility] for eRx and Interaction Alerts* 11/04/2012 Active Neurontin 800 MG Tablet One tablet Three Times a Day Oral Migrated to Version 5 from a previous version. 09/23/2011 Active VIibryd 40 mg One tablet Daily Migrated to Version 5 from a previous version. *Reorder from [facility] for eRx and Interaction Alerts* 04/28/2013 Active Neurontin 400 MG Capsule One tablet Three Times a Day Oral Migrated to Version 5 from a previous version. 05/29/2011 Active X-ray of bilateral hips Dx: Right hip pain, Left hip pain Supervising Physicians: Bryon Snyder MD, PhD , ASHLEY # [id number], [id number] *Reorder from [employer] for eRx and Interaction Alerts* 04/30/2016 Active PROZAC 40 MG One tablet Daily Migrated to Version 5 from a previous version. *Reorder from [employer] for eRx and Interaction Alerts* 06/15/2012 Active Percocet 10-325 MG Tablet One tablet Six Times a Day Oral Migrated to Version 5 from a previous version. 02/06/2011 Active OxyCONTIN 30 MG Tablet ER 12 Hour Abuse-Deterrent One tablet Twice Daily Oral Migrated to Version 5 from a previous version. 11/23/2011 Active oxyMORphone HCl 10 MG Tablet One tablet Twice Daily Oral Migrated to Version 5 from a previous version. 05/01/2011 Active OxyCONTIN 10 MG Tablet ER 12 Hour Abuse-Deterrent One tablet Three Times a Day Oral Migrated to Version 5 from a previous version. 04/03/2011 Active OxyCONTIN 20 MG Tablet ER 12 Hour Abuse-Deterrent One tablet Three Times a Day Oral Migrated to Version 5 from a previous version. 07/29/2011 Active oxyCODONE HCl 15 MG Tablet One tablet Three Times a Day Oral Migrated to Version 5 from a previous version. 04/03/2011 Active oxyCODONE HCl 30 MG Tablet One tablet Three Times a Day Oral Migrated to Version 5 from a previous version. 07/29/2011 Active Vitamin D (Ergocalciferol) 38323 UNIT Capsule Take one tablet by mouth twice a week on Wed and Wed Oral Supervising Physicians: Bryon Snyder MD, PhD , ASHLEY # [id number], [id number] 04/30/2016 Active CELEXA TABLET 40 MG One tablet Daily Migrated to Version 5 from a previous version. *Reorder from [employer] for eRx and Interaction Alerts* 01/19/2012 Active PROzac 20 MG Capsule One tablet Daily Oral Migrated to Version 5 from a previous version. 05/18/2012 Active Zanaflex 6 MG Capsule One tablet Four Times a Day Oral Migrated to Version 5 from a previous version. 03/06/2011 Active Lisinopril 5 MG Tablet Take 1 pill by mouth QD (Daily) X 1 Month (30d) Oral 07/17/2016 Active Mobic 15 MG Tablet One tablet Daily Oral Migrated to Version 5 from a previous version. *Reorder from [facility] for eRx and Interaction Alerts* 02/06/2011 Active KlonoPIN 0.5 MG Tablet One tablet Daily Oral Migrated to Version 5 from a previous version. 06/15/2012 Active KlonoPIN 1 MG Tablet One tablet Daily PRN anxiety Oral Migrated to Version 5 from a previous version. 09/09/2012 Active OPANA OXYMORPHONE HYDROCHLORIDE EXTENDED RELEASE TABLETS 15 MG One tablet Twice Daily Migrated to Version 5 from a previous version. *Reorder from [facility] for eRx and Interaction Alerts* 07/24/2013 Active OXYMORPHONE HYDROCHLORIDE EXTENDED RELEASE TABLETS 15 MG One tablet Twice Daily Migrated to Version 5 from a previous version. *Reorder from [facility] for eRx and Interaction Alerts* 04/19/2012 Active MRI Lumbar spine; MRI hips bilaterally DX: low back pain, bilateral hip pain Migrated to Version 5 from a previous version. *Reorder from [employer] for eRx and Interaction Alerts* 03/20/2014 Active NEURONTIN CAPSULES 300 MG One tablet Three Times a Day Migrated to Version 5 from a previous version. *Reorder from [facility] for eRx and Interaction Alerts* 03/06/2011 Active CYMBALATA CAPSULES 30 MG One tablet Daily Migrated to Version 5 from a previous version. *Reorder from [facility] for eRx and Interaction Alerts* 08/26/2011 Active MRI Lumbar Spine DX: low back pain Migrated to Version 5 from a previous version. *Reorder from [facility] for eRx and Interaction Alerts* 04/19/2014 Active Social History Social History Additional Details Category Social Info Options Details Migrated Social History Migrated Social History Living situation: Occupation: Unemployed Tobacco: 1ppd xomker x 20+yrs EtOH: Denies Rec. drugs: Denies , Living situation: Occupation: Unemployed Tobacco: 1ppd xsmoker x 20+yrs EtOH: Denies Rec. drugs: Denies Problems Problem Type SNOMED Code ICD Code Onset Dates Problem Status W/U Status Risk Notes Problem Chronic pain (47373633) Other chronic pain (338.29) 02/07/20 11 Active confirmed Problem Thoracic and lumbosacral neuritis (517402262) Thoracic or lumbosacral neuritis or radiculitis, unspecified (724.4) 02/07/20 11 Active confirmed Problem Backache (922435909) Unspecified backache (724.5) 02/07/20 11 Active confirmed Problem Lumbago (394542459) Lumbago (724.2) 02/07/20 11 Active confirmed Problem Arthralgia of the pelvic region and thigh (054711936) Pain in joint, pelvic region and thigh (719.45) 02/07/20 11 Active confirmed Problem Pain in joint, lower leg (719.46) 02/07/20 11 Active confirmed Problem Malaise and fatigue (638118925) Other malaise and fatigue (780.79) 02/07/20 11 Active confirmed Problem Harmful pattern of use of tobacco (disorder) (0677501884) Personal history of tobacco use, presenting hazards to health (V15.82) 02/07/20 11 Active confirmed Problem Chronic pain (12539379) Other chronic pain (G89.29) 03/18/20 15 Active confirmed Problem Arthralgia of the pelvic region and thigh (631660785) Pain in unspecified hip (M25.559) 04/30/20 16 Active confirmed Problem Lumbosacral spondylosis without myelopathy (50546949) Spondylosis without myelopathy or radiculopathy, lumbar region (M47.816) 03/05/20 16 Active confirmed Problem Displacement of lumbar intervertebral disc without myelopathy (10560227) Other intervertebral disc displacement, lumbar region (M51.26) 02/15/20 15 Active confirmed Problem Lumbar radiculopathy (262960755) Radiculopathy, lumbar region (M54.16) 02/15/20 15 Active confirmed Problem Spasm of back muscles (252217882) Muscle spasm of back (M62.830) 03/05/20 16 Active confirmed Problem High risk drug monitoring status (328528377) [facility] (current) use of opiate analgesic (Z79.891) 02/15/20 15 Active confirmed Problem Spinal stenosis of lumbar region (40060213) Spinal stenosis of lumbar region, without neurogenic claudication (724.02) 06/23/19 12 Active confirmed Problem Long-term current use of drug therapy (632119052) Long-term (current) use of other medications (V58.69) 02/07/20 11 Active confirmed Plan Of Treatment No Information
--- NOTE | 2025-01-18 13:44 | CA_ITS ---
FINAL REPORT CLINICAL HISTORY: Smoker, Leg wounds, Leg pain FINDINGS: BILATERAL LOWER EXTREMITY DUPLEX DOPPLER Color Doppler and duplex Doppler of the bilateral lower extremity was performed. Spectral analysis was also performed. Velocities were measured at multiple levels. All velocities are in centimeters per second. RIGHT LINEN CONTROLLER: 172 Prof: 101 SFA Prox: 120 SFA Mid: 124 SFA Distal: 88 SHEET TESTER Mid: 146 SHEET TESTER Dist: 146 Per Prox: 127 JESENIA: 122 HANSEL: 0.90 Waveforms are monophasic LEFT LINEN CONTROLLER: 182 Prof: 106 SFA Prox: 139 SFA Mid: 145 SFA Distal: 139 SHEET TESTER Mid: 118 SHEET TESTER Dist: 100 Per Prox: 135 JESENIA: 152 HANSEL: 0.86 Waveforms are monophasic IMPRESSION: Waveforms are noted to be monophasic bilaterally, concerning for inflow stenosis. Recommend CTA to better evaluate iliac vessels. Reviewed, Interpreted and Dictated by Daniel Walker MD Transcribed by Amira Terrell Authenticated and [facility]
== END 2025-01-18 23:59 | disposition home or self-care (01) ==
LOC: RAD 13:29
PROVIDERS: PCP Nurse Practitioner Family; Visit Provider Nurse Practitioner Family
DX: Z12.31 Encounter for screening mammogram for malignant neoplasm of breast (principal); I73.9 Peripheral vascular disease, unspecified; F17.200 Nicotine dependence, unspecified, uncomplicated; M79.606 Pain in leg, unspecified; R92.323 Mammographic fibroglandular density, bilateral breasts; R93.6 Abnormal findings on diagnostic imaging of limbs
CPT/HCPCS: 77063; 77067; 93925